=== PATIENT | male | born 1940 | race Caucasian/White ===

== ENCOUNTER 2018-04-27 02:29 | Outpatient (CLI) | payer MEDICARE, MEDICAID, SELFPAY ==
[2018-04-27 11:34] LABS: Glucose 107 mg/dL (70-100)
== END 2018-04-27 02:49 ==
PROVIDERS: PCP Family Medicine; Visit Provider Family Medicine
DX: E74.39 Other disorders of intestinal carbohydrate absorption (principal)
CPT/HCPCS: 36415; 82947

== ENCOUNTER 2018-11-20 02:24 | Outpatient (CLI) | payer MEDICARE, SELFPAY ==
[2018-11-20 10:41] LABS: Calculated LDL 81 mg/dL; Cholesterol 146 mg/dL (50-200); Glucose 104 mg/dL (70-100); HDL Cholesterol 50 mg/dL (40-60); Triglyceride 78 mg/dL (30-150)
== END 2018-11-20 02:44 ==
PROVIDERS: PCP Family Medicine; Visit Provider Family Medicine
DX: E78.5 Hyperlipidemia, unspecified (principal); E74.39 Other disorders of intestinal carbohydrate absorption; Z12.5 Encounter for screening for malignant neoplasm of prostate
CPT/HCPCS: 36415; 80061; 82947; 83721; 84153

== ENCOUNTER 2020-03-01 03:15 | Outpatient (CLI) | payer MEDICARE, MEDICAID, SELFPAY ==
[2020-03-01 13:11] LABS: Hemoglobin A1C 5.5 % (<5.7)
[2020-03-01 13:39] LABS: Magnesium 1.8 mg/dL (1.8-2.4); Vitamin B12 405 pg/mL (193-986)
[2020-03-01 21:33] LABS: PSA, Screening 4.8 ng/mL (0.0-6.5)
== END 2020-03-01 03:35 ==
PROVIDERS: PCP Family Medicine; Visit Provider Family Medicine
DX: E83.42 Hypomagnesemia (principal); D64.9 Anemia, unspecified; R73.9 Hyperglycemia, unspecified; Z12.5 Encounter for screening for malignant neoplasm of prostate
CPT/HCPCS: 36415; 84153; 82607; 83036; 83735

== ENCOUNTER → 2020-03-16 10:54 | Outpatient (BNVA) | payer MEDICARE, MEDICAID, SELFPAY | PROVIDERS: PCP Family Medicine; Referring Provider Family Medicine; Visit Provider Surgery | DX: L72.3 Sebaceous cyst (principal) | CPT/HCPCS: 11422; 99201 ==

== ENCOUNTER → 2020-03-23 09:04 | Outpatient (BNVA) | payer MEDICARE, MEDICAID, SELFPAY | PROVIDERS: PCP Family Medicine; Referring Provider Family Medicine; Visit Provider Surgery | DX: L91.8 Other hypertrophic disorders of the skin (principal) | CPT/HCPCS: 11200; 99211 ==

== ENCOUNTER → 2020-03-30 09:04 | Outpatient (BNVA) | payer MEDICARE, MEDICAID, SELFPAY | PROVIDERS: PCP Family Medicine; Referring Provider Family Medicine; Visit Provider Surgery | DX: Z48.02 Encounter for removal of sutures (principal) ==

== ENCOUNTER 2021-03-27 12:24 | Outpatient (CLI) | payer MEDICARE, MEDICAID, SELFPAY ==
--- NOTE | 2021-03-27 12:15 | RT.EKG_ITS ---
APPROVED REPORT Exam: Resting ECG Reason for Exam: Arythmia Patient Location: O HR:79 bpm ECG Measurements Heart Rate 79 AXIS IA [id number] P [id number] QRSd 150 QRS 15 QT 393 T -27 QTc 450 Conclusion Atrial fibrillation...V-rate 62-107, irreg A-activity Right bundle branch block...QRSd>120, terminal axis(90,270)
== END 2021-03-27 12:25 | disposition home or self-care (01) ==
LOC: DI.CM 12:28
PROVIDERS: PCP Family Medicine; Visit Provider Family Medicine
DX: I49.9 Cardiac arrhythmia, unspecified (principal)
CPT/HCPCS: 93010

== ENCOUNTER 2021-04-18 15:10 | Outpatient (REF) | payer MEDICARE, MEDICAID, SELFPAY ==
[2021-04-20 14:16] LABS: COVID-19 RT-PCR UVMMC Result Negative (Negative)
== END 2021-04-18 15:11 | disposition home or self-care (01) ==
LOC: LBN 15:10
PROVIDERS: PCP Family Medicine; Visit Provider Family Medicine
DX: Z20.822 Contact with and (suspected) exposure to COVID-19 (principal)
CPT/HCPCS: U0003

== ENCOUNTER 2021-04-23 04:08 | Outpatient (CLI) | payer MEDICARE, MEDICAID, SELFPAY ==
[2021-04-23 12:06] LABS: Hemoglobin A1C 5.7 % (<5.7)
[2021-04-23 13:11] LABS: Calculated LDL 93 mg/dL (<100); Cholesterol 160 mg/dL (<200); HDL Cholesterol 52 mg/dL (40-60); Triglyceride 75 mg/dL (<150)
== END 2021-04-23 04:09 | disposition home or self-care (01) ==
LOC: LBO 04:08
PROVIDERS: PCP Family Medicine; Visit Provider Family Medicine
DX: E78.5 Hyperlipidemia, unspecified (principal); R73.9 Hyperglycemia, unspecified; E83.42 Hypomagnesemia
CPT/HCPCS: 36415; 80061; 83036; 83735

== ENCOUNTER 2021-11-26 01:32 | Outpatient (CLI) | payer MEDICARE, MEDICAID, SELFPAY ==
--- OUTSIDE RECORDS SUMMARY | 2021-11-26 01:44 | XMS_ITS | Encounter Summary ---
:1940 [place] [address] Care Team Providers Name Role Phone Onesimo Coyle MD Primary Care Provider Encounter Details Date Type Department Care Team Description 04/10/2017 Hospital Encounter Radiology Library at [facility] Lisa Lanza [facility] [place] [address] [address] [place] [address] [phone] (Wo rk) Social History Tobacco Use Types Packs/Day Years Used Date Never Assessed Sex Assigned at Date Recorded Not on file documented as of this encounter Medications at Time of Discharge Medication Sig Dispensed Refills Start Date End Date Ibuprofen 200 mg Capsule Take by mouth. 0 013 gabapentin (NEURONTIN) take 1 capsule by 0 201604/19/2020 300 mg Capsule mouth PRN famotidine (PEPCID) 20 0 01/26/2008 mg tablet capsaicin (ZOSTRIX) 1 Appl(s), Top, PRN 0 008 09/16/2020 0.025 % cream documented as of this encounter Plan of Treatment Upcoming Encounters Date Type Specialty Care Team Description 01/21/2022 Office Visit Ophthalmology Cody Francisco MD [facility] OPHTHALMOLOGY [place] [place], [place] [address] (Wo rk) documented as of this encounter Procedures Procedure Name Priority Date/Time Associated Diagnosis Comme nts REQUEST FOR 2ND Routine 04/10/2017 10:43 AM Pain Resul ts for this READ CT CHEST EST procedure are in the results section. documented in this encounter Results Request For 2nd Read CT Chest (04/10/2017 10:43 AM EST) Anatomical Region Laterality Modality Chest SO Specimen (Source) Anatomical Location Collection Method / Collectio n Time Received Time / Laterality Volume Impressions 04/10/2017 11:59 AM EST 1. ??Pleural-based 4 mm lingular nodule versus atelectasis. No other pulmonary nodules. No foci of consolidation. 2. ??Indeterminate hypervascular segment a liver lesions. Cannot distinguish benign arterioportal shunt from hemangio ma from other lesion and further evaluation with dynamic contrast-enhance d MRI is suggested. 3. ??Moderate hiatal hernia containing m uch of the stomach. Narrative 04/10/2017 11:59 AM EST EXAMINATION: REQUEST FOR 2ND READ CT CHEST CLINICAL HISTORY: CHRONIC COUGH; LIVER M ASS?; What Modality is the exam? CT Scan; Body Part (please add comments as necessary): CHEST; I believe a reinterpretation of this exam may alter care of Patient. Yes TECHNIQUE: Helical CT of the chest was p erformed following intravenous administration of 70ml of Ominpaque 350. Multiplanar reformatted images were generated. Study performed March 27, 2017 at [facility] COMPARISON: None FINDINGS: Lungs and airways: Pleural-based 4 mm li ngular nodule versus atelectasis. Small foci of dependent atelectasis. Pleura and pericardium: No pleural nor p ericardial effusions. Heart and vasculature: Normal size cardi ac silhouette. Normal caliber thoracic aorta is smooth-walled widely patent gre at vessels. No central pulmonary emboli. Mediastinum and hilar structures: No pat hologically enlarged axillary, mediastinal nor hilar lymph nodes. Moder ate hiatal hernia containing much of the stomach. Limited views of the upper abdomen show dual hypervascular lesions in segment 4A, the largest of which measures 18 mm. Osseous lesions: No focal lytic or scler otic osseous lesion. Procedure Note Shameka Lang MD - 04/10/2017 EXAMINATION: REQUEST FOR 2ND READ CT [facility] CLINICAL HISTORY: CHRONIC COUGH; LIVER M ASS?; What Modality is the exam? CT Scan; Body Part (please add comments as necessary): CHEST; I believe a reinterpretation of this exam may alter care of Patient. Yes TECHNIQUE: Helical CT of the chest was p erformed following intravenous administration of 70ml of Ominpaque 350. Multiplanar reformatted images were generated. Study performed March 27, 2017 at [facility] COMPARISON: None FINDINGS: Lungs and airways: Pleural-based 4 mm li ngular nodule versus atelectasis. Small foci of dependent atelectasis. Pleura and pericardium: No pleural nor p ericardial effusions. Heart and vasculature: Normal size cardi ac silhouette. Normal caliber thoracic aorta is smooth-walled widely patent gre at vessels. No central pulmonary emboli. Mediastinum and hilar structures: No pat hologically enlarged axillary, mediastinal nor hilar lymph nodes. Moder ate hiatal hernia containing much of the stomach. Limited views of the upper abdomen show dual hypervascular lesions in segment 4A, the largest of which measures 18 mm. Osseous lesions: No focal lytic or scler otic osseous lesion. IMPRESSION 1. Pleural-based 4 mm lingular nodule ve rsus atelectasis. No other pulmonary nodules. No foci of consolidation. 2. Indeterminate hypervascular segment a liver lesions. Cannot distinguish benign arterioportal shunt from hemangio ma from other lesion and further evaluation with dynamic contrast-enhance d MRI is suggested. 3. Moderate hiatal hernia containing muc h of the stomach. Nathan Ferrera MD IMG OUTSIDE INTERPRETATION O RDERABLES documented in this encounter Visit Diagnoses Diagnosis Pain Generalized pain documented in this encounter Care Teams Jointer Machine Relationship Specialty Start Date End Date Onesimo Coyle MD PCP - General 04/03/10 04/21/17 [address] [place] [address] documented as of this encounter
--- OUTSIDE RECORDS SUMMARY | 2021-11-26 01:44 | XMS_ITS | Encounter Summary ---
:1940 Author Organization [place] [address] Care Team Providers Name Role Phone Nathan Ferrera MD Primary Care Provider [phone] Reason for Visit Reason Comments Ptosis Encounter Details Date Type Department Care Team Description 01/11/2021 Office Visit Ophthalmology at [facility] Erin Mosqueda, Ptosis of both upper eyelids ; [facility] Dermatochalasis of [place] [address] CENTER [phone] [place] [address] Social History Tobacco Use Types Packs/Day Years Used Date Former Smoker Quit: 1994 Smokeless Tobacco: Never Used Alcohol Use Standard Drinks/Week Comments Yes 0 (1 standard drink = 0.6 oz pure alcoho l) Sex Assigned at Date Recorded Not on file documented as of this encounter Progress Notes Erin Mosqueda MD - 01/11/2021 12:45 PM EDT Images from the original note were not included. Encounter Diagnoses Name Primary? Ptosis of both upper eyelids ??? Dermatochalasis of left upper eyelid Edward Phillip, a 80 y.o. male with the following problem(s): 1. Dermatochalasis of bilateral upper eyelids: causing obstruction of vision and affecting activities of daily living. Visually significant superior field loss of both eyes was demonstrated by Goldmannvisual busby, with 15-20 degrees of improvement noted with eyelid taping. 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 Recommend repair with dermatochalasis excision OU. - Discussed risks, benefits, and alternatives to procedure including risk of bleeding, infection, recurrence, and need for more surgery and Edward expressed understanding. - Patient to stop NSAIDs 14 days prior - Surgical orders entered - Surgical consent signed - pre-operative information packet given - surgical coordination initiated - Call with any problems or questions. - Findings and concerns discussed with Edward and he expressed understanding. FOLLOW UP - schedule for surgery Photo(s) taken by Erin Mosqueda MD with patient's verbal permission for use for clinical and education purposes documented in this encounter Plan of Treatment Upcoming Encounters Date Type Specialty Care Team Description 01/21/2022 Office Visit Ophthalmology Cody Francisco MD [facility] DR OPHTHALMOLOGY [place], [place] [address] (Wo rk) documented as of this encounter Procedures Procedure Name Priority Date/Time Associated Comments Diagnosis GOLDMANN VISUAL FIELD Routine 01/11/2021 1:32 PM Ptosis of bot h Results for this - INTERMEDIATE - OU- EDT upper eyelids proced ure are in BOTH EYES the results section. documented in this encounter Results Goldmann Visual Field - Intermediate - OU - Both Eyes (01/11/2021 1:32 PM EDT) Anatomical Region Laterality Modality Other Specimen (Source) Anatomical Location Collection Method / Collectio n Time Received Time / Laterality Volume Narrative 01/11/2021 1:32 PM EDT Right Eye Reliability was good. Left Eye Reliability was good. Notes OD: superior visual field defect within 20 degrees of fixation, improves 20 degrees with lid taping OS: superior visual field defect within 10 degrees of fixation, improves 15 degrees with lid taping Erin Mosqueda MD OPHTHALMOLOGY SERVICES ORDER CRIS documented in this encounter Visit Diagnoses Diagnosis Ptosis of both upper eyelids Dermatochalasis of left upper eyelid Dermatochalasis documented in this encounter Care Teams Adult Family Home Program Manager Relationship Specialty Start Date End Date Nathan Ferrera MD PCP - General Family Medicine 04/22/[address] [place] [address] documented as of this encounter
--- OUTSIDE RECORDS SUMMARY | 2021-11-26 01:44 | XMS_ITS | Encounter Summary ---
:1940 Author Organization [facility] Address [address] [place] [address] Care Team Providers Name Role Phone Nathan Ferrera MD Primary Care Provider [phone] Reason for Visit Reason Comments Procedure Encounter Details Date Type Department Care Team Description 09/16/2020 Procedure visit Ophthalmology at [facility] Cody Treadwell, Central retinal vein [facility] MD occlusion with Drive [facility] [place] [place] [address] CENTER left eye [phone] [place] [address] Social History Tobacco Use Types Packs/Day Years Used Date Former Smoker Quit: 1994 Smokeless Tobacco: Never Used Alcohol Use Standard Drinks/Week Comments Yes 0 (1 standard drink = 0.6 oz pure alcoho l) Sex Assigned at Date Recorded Not on file documented as of this encounter Patient Instructions Patient InstructionsKimmy Moser - 09/16/2020 11:45 AM EDT Today you had your left eye(s) injected with a medication called Eylea. -Please pay attention to your future scheduled appointments if you are having repeat injections. Future injections in the same eye must be at least 28 days apart. -Please, do not rub or wipe your eye for 24-48 hours after the injection as it would create more irritation.If you feel you must, close your eyes, dab gently, and use the sterile pink saline bullets toflush your eyes. -Try to avoid getting tap water or bath water in the eye for 48 hours. Do not swim for 48 hours. -Caution about driving: We always recommend having a chassis driver on the day you get an injection. If you do not feel comfortable driving after your procedure, please allow your vision to recover or make alternate arrangements. - Here are the Normal and Expected side effects: -Do not be surprised or worried if you have a few bloody tears after the injection. You may have a small blood spot on the white of your eye (subconjunctival hemorrhage) or the appearance of a small blister or bump where the injection was given. -You may notice your vision seems a bit hazy and you may see floaters. -All of these things should gradually become less noticeable over the next few days. -You may also have some mild irritation or a foreign body sensation for up to 24 hours. - Here are the Not Normal and Not Expected side effects: Call [phone] (Eye Clinic) DAY or NIGHT, HOLIDAY or WEEKEND if you experience any of the following: = Severe, increasing pain in the eye = Significant, dramatic vision loss = Redness on and around the eye that gets worse, not better = Severe light sensitivity Call 911 or go to the Emergency room immediately if you experience = Chest pain = Abdominal pain = Weakness or numbness on any part of your body = Slurred speech = Or any other symptoms of concern documented in this encounter Progress Notes Cody Francisco MD - 09/16/2020 11:45 AM EDT ASSESSMENT: 1. 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 OPHTHALMOLOGY [place], [place] [address] (Wo rk) documented as of this encounter Procedures Procedure Name Priority Date/Time Associated Comments Diagnosis INTRAVITREAL INJECTION Routine 09/16/2020 12:24 Central retina l Results for this PHARMACOLOGIC AGENT - PM EDT vein occlusion with procedure are in OS - LEFT EYE macular edema of the result s left eye section. documented in this encounter Results Intravitreal Injection Pharmacologic Agent - OS - Left Eye (09/16/2020 12:24 PM EDT) Anatomical Region Laterality Modality Other Specimen (Source) Anatomical Location Collection Method / Collectio n Time Received Time / Laterality Volume Narrative 09/16/2020 12:24 PM EDT Pre Operative Diagnosis: Central Retinal Vein Occlusion - retina l edema Post Operative Diagnosis: Central Retinal Vein Occlusion - retina l edema Procedure: Intravitreal injection of Eyl ea 2.0 mg left eye Assist: Valet Runner Anesthesia: Topical proparacaine and top ical 4% lidocaine Complications: None Procedure: The patient was taken to the minor treatment suite where the patient was reidentified using name and birthdate as critical identifiers. The correct eye as the operative site wa s reidentified by preplaced site payton, and the consent form was actively reviewed by the credit assistant and the surgeon. The left eye was prepped including insti llation of Betadine 5% into the left cul de sac for 5 minutes, facial pr ep with ophthalmic Betadine, placement of a lid speculum. The Surgeon performed hand washing preop eratively, used gloves, and wore a face mask or used no talking technique during the procedure, as did the surgical services assistant. After topical anesthesia of the injectio n site using multiple Q-tips soaked in 4% Lidocaine, Aflibercept (Eyl ea) 2.0 mg was injected with a 30 gauge needle directed toward the center of the vitreous cavity, a measured 4 mm posterior to the limbus at the ??04 30 o'clock meridian. The patient demonstrated a minimum of counting finge rs vision post injection, and received a post injection drop of Betadi ne OS. An optional patch OS was offered to the patient, and the patient was asked to call the Eye Clinic or Eye Doctor director of enterprise applications, should they devel op pain in the treated eye, increasing redness or a discharge from t he eye. Condition on Discharge: Stable. Cody Francisco MD OPHTHALMOLOGY SERVICES ORDER CRIS documented in this encounter Visit Diagnoses Diagnosis Central retinal vein occlusion with macu lar edema of left eye documented in this encounter Administered Medications Inactive Administered Medications - up to 3 most recent administrations Medication Order MAR Action Action Date Dose Rate Site aflibercept (Eylea) 2 mg/0.05 Given 09/16/2020 12:45 PM EDT 2 mg Left Eye mL ophthalmic injection 2 mg 2 mg, Intravitreal, ONCE, 1 dose, On 09/16/20 at 1245, Routine documented in this encounter Care Teams Reference Test Clerk Relationship Specialty Start Date End Date Nathan Ferrera MD PCP - General Family Medicine 04/22/[address] [place] [address] documented as of this encounter
--- OUTSIDE RECORDS SUMMARY | 2021-11-26 01:44 | XMS_ITS | Encounter Summary ---
:1940 Author Organization [facility] Address [address] [place] [address] Care Team Providers Name Role Phone Nathan Ferrera MD Primary Care Provider [phone] Reason for Visit Reason Comments Procedure Encounter Details Date Type Department Care Team Description 05/27/2020 Procedure visit Ophthalmology at [facility] Cody Treadwell, Central retinal vein [facility] MD occlusion with Drive [facility] [place] [place] [address] CENTER left eye [phone] [place] [address] Social History Tobacco Use Types Packs/Day Years Used Date Former Smoker Quit: 1994 Smokeless Tobacco: Never Used Alcohol Use Standard Drinks/Week Comments Yes 0 (1 standard drink = 0.6 oz pure alcoho l) Sex Assigned at Date Recorded Not on file documented as of this encounter Patient Instructions Patient InstructionsVero Lopez - 05/27/2020 10:15 AM EST Today you had your left eye(s) injected [...] about driving: We always recommend having a driver starting gate on the day you get an injection. [...] Normal and Not Expected side effects: Call [phone] (Eye Clinic) DAY or NIGHT, HOLIDAY or [...] encounter Progress Notes Cody Francisco MD - 05/27/2020 10:15 AM EST ASSESSMENT: 1. 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 Extended to 8 weeks. OCT: very mild recurrence of CME just starting Vision is down a bit to 20/200 from 20/60 at its best OS. PLAN: Ok to continue 8 week intervals based on OCT. Lets call today #1/3 Eylea OS. Eylea OS #1/3 Today Please schedule the followin weeks Eylea OS #2/3 MSO only 8 weeks Eylea OS #3/3 MSO only 8 weeks for Re-eval FV+MSO with DFE/OCT and planned Eylea OS Cody Perdue. MD Nolan documented in this encounter Plan of Treatment Upcoming Encounters Date Type Specialty Care Team Description 01/21/2022 Office Visit Ophthalmology Cody Francisco MD [facility] OPHTHALMOLOGY [place], [place] [address] (Wo rk) documented as of this encounter Procedures Procedure Name Priority Date/Time Associated Comments Diagnosis INTRAVITREAL INJECTION Routine 05/27/2020 10:45 Central retina l Results for this PHARMACOLOGIC AGENT - AM EST vein occlusion with procedure are in OS - LEFT EYE macular edema of the result s left eye section. documented in this encounter Results Intravitreal Injection Pharmacologic Agent - OS - Left Eye (05/27/2020 10:45 AM EST) Anatomical Region Laterality Modality Other Specimen (Source) Anatomical Location Collection Method / Collectio n Time Received Time / Laterality Volume Narrative 05/27/2020 10:45 AM EST Pre Operative Diagnosis: Central Retinal Vein Occlusion - retina l edema Post Operative Diagnosis: Central Retinal Vein Occlusion - retina l edema Procedure: Intravitreal injection of Eyl ea 2.0 mg left eye Assist: Transportation Dispatcher Anesthesia: Topical proparacaine and top ical 4% lidocaine Complications: None Procedure: The patient was taken to the minor treatment suite where the patient was reidentified using name and birthdate as critical identifiers. The correct eye as the operative site wa s reidentified by preplaced site payton, and the consent form was actively reviewed by the assistant chief nursing officer and the surgeon. The left eye was prepped including insti llation of Betadine 5% into the left cul de sac for 5 minutes, facial pr ep with ophthalmic Betadine, placement of a lid speculum. The Surgeon performed hand washing preop eratively, used gloves, and wore a face mask or used no talking technique during the procedure, as did the surgical technologist. After topical anesthesia of the injectio n [...] call the Eye Clinic or Eye Doctor numerical control router operator, should they devel op pain in the [...] Rate Site aflibercept (Eylea) 2 mg/0.05 Given 05/27/2020 11:15 AM EST 2 mg Left Eye mL ophthalmic injection 2 mg 2 mg, Intravitreal, ONCE, 1 dose, On 05/27/20 at 1115, Routine documented in this encounter Care Teams Artist'S Model Relationship Specialty Start Date End Date Nathan Ferrera MD PCP - General Family Medicine 04/22/[address] [place] [address] documented as of this encounter
--- OUTSIDE RECORDS SUMMARY | 2021-11-26 01:44 | XMS_ITS | Encounter Summary ---
:1940 Author Organization [facility] Address [address] [place] [address] Care Team Providers Name Role Phone Nathan Ferrera MD Primary Care Provider [phone] Reason for Visit Reason Comments Procedure Encounter Details Date Type Department Care Team Description 02/19/2020 Procedure visit [facility]hthalmology at [facility] Cody Treadwell, Central retinal vein [facility] MD occlusion with Drive [facility] [place] [address] [facility] left eye [phone] [place] [address] Social History Tobacco Use Types Packs/Day Years Used Date Former Smoker Quit: 1994 Smokeless Tobacco: Never Used Alcohol Use Standard Drinks/Week Comments Yes 0 (1 standard drink = 0.6 oz pure alcoho l) Sex Assigned at Date Recorded Not on file documented as of this encounter Patient Instructions Patient InstructionsVero Lopez - 02/19/2020 10:45 AM EDT Today you had your left [...] about driving: We always recommend having a nascar driver on the day you get an [...] Normal and Not Expected side effects: Call [phone] (Eye Clinic) DAY or NIGHT, HOLIDAY or [...] encounter Progress Notes Cody Francisco MD - 02/19/2020 10:45 AM EDT ASSESSMENT: 1. 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 Planned Eylea OS Keep Ozurdex as option in future as well Sooner PRN Cody Perdue. MD Nolan documented in this encounter Plan of Treatment Upcoming Encounters Date Type Specialty Care Team Description 01/21/2022 Office Visit Ophthalmology Cody Francisco MD [facility] OPHTHALMOLOGY [place] [address] (Wo rk) documented as of this encounter Procedures Procedure Name Priority Date/Time Associated Comments Diagnosis INTRAVITREAL INJECTION Routine 02/19/2020 11:15 Central retina l Results for this PHARMACOLOGIC AGENT - AM EDT vein occlusion with procedure are in OS - LEFT EYE macular edema of the result s left eye section. documented in this encounter Results Intravitreal Injection Pharmacologic Agent - OS - Left Eye (02/19/2020 11:15 AM EDT) Anatomical Region Laterality Modality Other Specimen (Source) Anatomical Location Collection Method / Collectio n Time Received Time / Laterality Volume Narrative 02/19/2020 11:15 AM EDT Pre Operative Diagnosis: Central Retinal Vein Occlusion - retina l edema Post Operative Diagnosis: Central Retinal Vein Occlusion - retina l edema Procedure: Intravitreal injection of Eyl ea 2.0 mg left eye Assist: Hospice/Home Health Aide Anesthesia: Topical proparacaine and top ical 4% lidocaine Complications: None Procedure: The patient was taken to the minor treatment suite where the patient was reidentified using name and birthdate as critical identifiers. The correct eye as the operative site wa s reidentified by preplaced site payton, and the consent form was actively reviewed by the hair assistant and the surgeon. The left eye was prepped including insti llation of Betadine 5% into the left cul de sac for 5 minutes, facial pr ep with ophthalmic Betadine, placement of a lid speculum. The Surgeon performed hand washing preop eratively, used gloves, and wore a face mask or used no talking technique during the procedure, as did the surgical elastic knitter. After topical anesthesia of the injectio n [...] call the Eye Clinic or Eye Doctor environmental technical officer, should they devel op pain in the [...] Action Action Date Dose Rate Site aflibercept (EYLEA) ophthalmic Given 02/19/2020 11:45 AM EDT 2 m g Left Eye injection 2 mg 2 mg, Intravitreal, ONCE, 1 dose, On 02/19/20 at 1145, Routine documented in this encounter Care Teams Manufacturing Weaver Relationship Specialty Start Date End Date Nathan Ferrera MD PCP - General Family Medicine 04/22/[address] [place] [address] documented as of this encounter
--- OUTSIDE RECORDS SUMMARY | 2021-11-26 01:44 | XMS_ITS | Encounter Summary ---
:1940 Author Organization [facility] Address [address] [place] [address] Care Team Providers Name Role Phone Nathan Ferrera MD Primary Care Provider [phone] Reason for Visit Reason Comments Procedure Eylea OS for CRVO Encounter Details Date Type Department Care Team Description 01/16/2021 Procedure visit Ophthalmology at [facility] Cody Treadwell, Central retinal vein [facility] MD occlusion with Drive [facility] [place] [address] C[place] left eye [phone] [place] [address] Social History Tobacco Use Types Packs/Day Years Used Date Former Smoker Quit: 1994 Smokeless Tobacco: Never Used Alcohol Use Standard Drinks/Week Comments Yes 0 (1 standard drink = 0.6 oz pure alcoho l) Sex Assigned at Date Recorded Not on file documented as of this encounter Patient Instructions Patient InstructionsJyoti Black - 01/16/2021 2:30 PM EDT Today you had your left eye(s) [...] about driving: We always recommend having a trackless trolley driver on the day you get an [...] Normal and Not Expected side effects: Call [phone] (Eye Clinic) DAY or NIGHT, HOLIDAY or [...] encounter Progress Notes Cody Francisco MD - 01/16/2021 2:30 PM EDT ASSESSMENT: 1. 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 Lets plan for the re-eval at next visit instead of waiting untilJan. Follow up as scheduled: Mar 16, 8-10 weeks for FV and MSO with DFE/OCT and planned Eylea OS. DFE in procedure room OK. Cancel Dedrick appt for now. Cody Francisco MD documented in this encounter Plan of Treatment Upcoming Encounters Date Type Specialty Care Team Description 01/21/2022 Office Visit Ophthalmology Cody Francisco MD [facility] OPHTHALMOLOGY [place], [place] [address] (Wo rk) documented as of this encounter Procedures Procedure Name Priority Date/Time Associated Comments Diagnosis INTRAVITREAL INJECTION Routine 01/16/2021 3:37 PM Central reti nal Results for this PHARMACOLOGIC AGENT - EDT vein occlusion with procedure are in OS - LEFT EYE macular edema of the result s left eye section. documented in this encounter Results Intravitreal Injection Pharmacologic Agent - OS - Left Eye (01/16/2021 3:37 PM EDT) Anatomical Region Laterality Modality Other Specimen (Source) Anatomical Location Collection Method / Collectio n Time Received Time / Laterality Volume Narrative 01/16/2021 3:37 PM EDT Pre Operative Diagnosis: Central Retinal Vein Occlusion - retina l edema Post Operative Diagnosis: Central Retinal Vein Occlusion - retina l edema Procedure: Intravitreal injection of Eyl ea 2.0 mg left eye Assist: Business Info Consultant Anesthesia: Topical proparacaine and top ical 4% lidocaine Complications: None Procedure: The patient was taken to the minor treatment suite where the patient was reidentified using name and birthdate as critical identifiers. The correct eye as the operative site wa s reidentified by preplaced site payton, and the consent form was actively reviewed by the assistant unit forester and the surgeon. The left eye was prepped including insti llation of Betadine 5% into the left cul de sac for 5 minutes, facial pr ep with ophthalmic Betadine, placement of a lid speculum. The Surgeon performed hand washing preop eratively, used gloves, and wore a face mask or used no talking technique during the procedure, as did the press operator assistant. After topical anesthesia of the injectio [...] call the Eye Clinic or Eye Doctor bond writer, should they devel op pain in the [...] Dose Rate Site aflibercept (Eylea) 2 mg/0.05 mL Given 01/16/2021 4:00 PM EDT 2 mg Left Eye ophthalmic injection 2 mg 2 mg, Intravitreal, ONCE, 1 dose, On Fri01/16/21 at 1600, Routine documented in this encounter Care Teams Automotive Glazier Relationship Specialty Start Date End Date Nathan Ferrera MD PCP - General Family Medicine 04/22/[address] [place] [address] documented as of this encounter
--- OUTSIDE RECORDS SUMMARY | 2021-11-26 01:44 | XMS_ITS | Clinical Summary ---
:1940 Author Organization [facility] [place] [address] Care Team Providers Name Role Phone Nathan Ferrera MD Primary Care Provider [phone] Allergies No known active allergies Medications Medication Sig Dispensed Refills Start Date End Date Status ibuprofen Take 200 mg by 0 Activ e (ADVIL;MOTRIN) 200 mg mouth every 6 Tablet hours as needed for Pain. multivitamin Take 1 tablet by 0 Active (THERAGRAN) Tablet mouth daily. Ventolin HFA 90 INHALE TWO PUFFS 0 04/14/2020 Active mcg/actuation HFA BY MOUTH FOUR Aerosol Inhaler TIMES A DAY FOR SHORTNESS OF BREATH OR WHEEZING penicillin v potassium TAKE ONE TABLET BY 0 04/13/20 20 Active (VEETID) 500 mg Tablet MOUTH THREE TIMES A DAY FOR 7 DAYS tamsulosin (Flomax) TAKE ONE CAPSULE 0 04/14/2020 Active 0.4 mg Capsule BY MOUTH EVERY DAY [id number] Take by mouth. 0 12/19/2017 Active 2-C-D3-KERRY ORAL Ibuprofen 200 mg Take by mouth. 0 09/30/2012 Active Capsule omeprazole (PriLOSEC) TAKE 1 CAPSULE BY 0 09/01/2020 Active 20 mg Capsule, Delayed MOUTH TWICE DAILY Release(E.C.) Active Problems Problem Noted Date Dermatochalasis of eyelid of left eye 01/11/2021 Encounters Date Type Specialty Care Team Description 11/16/2021 Procedure visit Ophthalmology Cody Francisco MD Cent ral retinal vein occlusion with macular edema of left e ye 10/26/2021 Office Visit Ophthalmology Charles Alcala, Cataract , unspecified cataract type, unspecified lat erality 09/21/2021 Procedure visit Ophthalmology Cody Francisco MD Cent ral retinal vein occlusion with macular edema of left e ye from Last 3 Months Immunizations Name Administration Dates Next Due Influenza Vaccine, Whole 04/14/2006, 03/11/2005 Pneumococcal Polyvalent 23 07/19/1998 Td, adult 07/19/1998 Family History Medical History Relation Comments Glaucoma Neg Hx Macular Degeneration Neg Hx Retinal Detachment Neg Hx Social History Tobacco Use Types Packs/Day Years Used Date Former Smoker Quit: 1994 Smokeless Tobacco: Never Used Alcohol Use Standard Drinks/Week Comments Yes 0 (1 standard drink = 0.6 oz pure alcoho l) Sex Assigned at Date Recorded Not on file Last Filed Vital Signs Vital Sign Reading Time Taken Comments Blood Pressure 130/71 11/19/2017 11:48 AM EDT Pulse 91 11/19/2017 11:48 AM EDT Temperature - - Respiratory Rate - - Oxygen Saturation - - Inhaled Oxygen Concentration - - Weight 89.4 kg (197 lb 3.2 oz) 11/19/2017 11:48 AM EDT Height 188 cm (6' 2) 11/19/2017 11:48 AM EDT Body Mass Index 25.32 11/19/2017 11:48 AM EDT Plan of Treatment Upcoming Encounters Date Type Specialty Care Team Description 01/21/2022 Office Visit Ophthalmology Cody Francisco MD [facility] [address] OPHTHALMOLOGY [place] [address] (Wo rk) Health Maintenance Due Date Last Done Comments Covid-19 Vaccine (#1) 12/26/1945 Tdap adult 1957 Zoster vaccine (1 of 2) 1988 Advance Directive 1993 Pneumoccocal Vaccine: 65+ (1 - PCV) 12/26/2003 07/19/1998 Tetanus vaccine 07/19/2008 07/19/1998 Influenza (Flu) vaccine (1 of 1 - 01/10/2022 04/14/2006, Influenza standard series) Procedures Procedure Name Priority Date/Time Associated Comments Diagnosis INTRAVITREAL INJECTION Routine 11/16/2021 11:41 Central retina l Results for this PHARMACOLOGIC AGENT - AM EDT vein occlusion with procedure are in OS - LEFT EYE macular edema of the result s left eye section. [id number] CALC Routine 10/26/2021 3:40 Cataract, Re sults for this BY LASER INTERFEROMETRY PM EDT unspecified proc edure are in - OU - BOTH EYES cataract type, the resul ts unspecified section. laterality OCT RETINA - OU - BOTH Routine 09/21/2021 5:17 Central retinal Results for this EYES PM EDT vein occlusion with procedur e are in macular edema of the results left eye section. INTRAVITREAL INJECTION Routine 09/21/2021 4:45 Central retinal Results for this PHARMACOLOGIC AGENT - PM EDT vein occlusion with procedure are in OS - LEFT EYE macular edema of the result s left eye section. from Last 3 Months Results Intravitreal Injection Pharmacologic Agent - OS - Left Eye (11/16/2021 11:41 AM EDT) Anatomical Region Laterality Modality Other Specimen (Source) Anatomical Location Collection Method / Collectio n Time Received Time / Laterality Volume Narrative 11/16/2021 6:28 PM EDT Pre Operative Diagnosis: Central Retinal Vein Occlusion - retina l edema Post Operative Diagnosis: Central Retinal Vein Occlusion - retina l edema Procedure: Intravitreal injection of Eyl ea 2.0 mg left eye Assist: Narcotics And/Or Vice Detective Anesthesia: Topical proparacaine and top ical 4% lidocaine Complications: None Procedure: The patient was taken to the minor treatment suite where the patient was reidentified using name and birthdate as critical identifiers. The correct eye as the operative site wa s reidentified by preplaced site payton, and the consent form was actively reviewed by the lpn or medical assistant and the surgeon. The left eye was prepped including insti llation of Betadine 5% into the left cul de sac for 5 minutes, facial pr ep with ophthalmic Betadine, placement of a lid speculum. The Surgeon performed hand washing preop eratively, used gloves, and wore a face mask or used no talking technique during the procedure, as did the registered nurse surgical services. After topical anesthesia of the injectio n [...] call the Eye Clinic or Eye Doctor diamond die polisher, should they devel op pain in the treated eye, increasing redness or a discharge from t he eye. Condition on Discharge: Stable. Cody Francisco MD OPHTHALMOLOGY SERVICES ORDER CRIS [id number] Calc By Laser Interferometry - OU - Both Eyes (10/26/2021 3:40 PM EDT) Anatomical Region Laterality Modality Other Specimen (Source) Anatomical Location Collection Method / Collectio n Time Received Time / Laterality Volume Narrative 10/26/2021 3:40 PM EDT Patient Hx Past Medical Hx ??Pt. ??has a past medi alisha history of Cataract (aprox 1999), GERD (gastroesophageal reflux dis ease), and Retinal detachment (Aprox 1954). Past Ophth Surg Hx ??Ophth surgical his tory includes: left intravitreal injection, 09/09/2019 ([facility] Dr. Neftali simpson); left intravitreal injection, 10/07/2019 ([facility] for CRVO per NNB); left intravitreal injection, 11/06/2019 ([facility] for CRVO per NNB); left intravitreal injection, 12/11/2019 ( [facility] for CRVO); left in travitreal injection, 01/15/2020 (Eylea OS for CRVO -NNB); left intravitr eal injection, 02/19/2020 (Eylea #2/3 for CRVO - NNB); left intravitreal injection, 03/25/2020 (Eylea OS #3/3 for CRVO - NNB); left intravitreal injection, 05/27/2020 (Eylea OS for CRVO - NNB); left intravitreal injec tion, 07/22/2020 (Eylea OS for CRVO - NNB); left intravitreal injection , 09/16/2020 (Eylea OS for CRVO - NNB; prepped by CMM); left intravitreal injection, 11/10/2020 (Eylea OS for CRVO - NNB); left intravitreal injec tion, 09/21/2021 (Eylea OS for CRVO - NNB); left cataract removal/iol i mplmalinda, 1999 ([place]. Dr. Vimal Islas. ); and left yag capsulotomy , 1999 ([facility]. Dr. Vimal Islas. ). Eye Meds ??Ibuprofen, albuteroL, glucos am/chond-msm 2/C/D3/kerry, ibuprofen, multivitamin, omeprazole, pen icillin v potassium, and tamsulosin IOL Biometry - Initial (source: [facility]) OD OS Date Performed 10/26/2021 ??3:18 PM 2021 ??3:18 PM ?? Target Refraction 0 0 ?? Axial Length 23.95 (mm) 24.07 (mm) ?? Anterior Chamber Depth 3.56 (mm) 6.19 (m m) ?? Horizontal White to White 11.85 (mm) 11. 83 (mm) ?? Formula Used ? K's 40.75, 40.57@93, 97 / 42.5, 42.44@3, 7 40.75, 41.13@140, 146 / 42.75, 42.95@50, 56 ? Add'l Comments/Discrepancies/Concerns: POM done today 10/26/21 [place] OU pseudophakia OS Charles Alcala MD OPHTHALMOLOGY SERVICES ORDER CRIS OCT Retina - OU - Both Eyes (09/21/2021 5:17 PM EDT) Anatomical Region Laterality Modality Other Specimen (Source) Anatomical Location Collection Method / Collectio n Time Received Time / Laterality Volume Narrative 09/21/2021 5:17 PM EDT Right Eye Quality was good. Scan locations include d subfoveal. Progression has been stable. Findings include normal observat ions, normal foveal contour. Left Eye Quality was good. Scan locations include d subfoveal. Progression has been stable. Findings include cystoid macular edema, intraretinal fluid, abnormal foveal contour, choroidal neova scular membrane. Notes Stable mild/ CME OS ERM. Cody Francisco MD OPHTHALMOLOGY SERVICES ORDER CRIS Intravitreal Injection Pharmacologic Agent - OS - Left Eye (09/21/2021 4:45 PM EDT) Anatomical Region Laterality Modality Other Specimen (Source) Anatomical Location Collection Method / Collectio n Time Received Time / Laterality Volume Narrative 09/21/2021 4:45 PM EDT Pre Operative Diagnosis: Central Retinal Vein Occlusion - retina l edema Post Operative Diagnosis: Central Retinal Vein Occlusion - retina l edema Procedure: Intravitreal injection of Eyl ea 2.0 mg left eye Assist: Narcotics And/Or Vice Detective Anesthesia: Topical proparacaine and top ical 4% lidocaine Complications: None Procedure: The patient was taken to the minor treatment suite where the patient was reidentified using name and birthdate as critical identifiers. The correct eye as the operative site wa s reidentified by preplaced site payton, and the consent form was actively reviewed by the lpn or medical assistant and the surgeon. The left eye was prepped including insti llation of Betadine 5% into the left cul de sac for 5 minutes, facial pr ep with ophthalmic Betadine, placement of a lid speculum. The Surgeon performed hand washing preop eratively, used gloves, and wore a face mask or used no talking technique during the procedure, as did the registered nurse surgical services. After topical anesthesia of the injectio n [...] call the Eye Clinic or Eye Doctor diamond die polisher, should they devel op pain in the treated eye, increasing redness or a discharge from t he eye. Condition on Discharge: Stable. Cody Francisco MD OPHTHALMOLOGY SERVICES ORDER CRIS from Last 3 Months Insurance Payer Benefit Plan / Subscriber ID Effective Dates Phone Addre ss Type Group MEDICARE MEDICARE PART [id number] 2004-Presen [id number] [place] [address] [place] [id number] 2017-Pres [phone] [address] [place] [address] Care Teams Transport Nurse Relationship Specialty Start Date End Date Nathan Ferrera MD PCP - General Family Medicine 04/22/[address] [place] [address]
--- OUTSIDE RECORDS SUMMARY | 2021-11-26 01:44 | XMS_ITS | Encounter Summary ---
:1940 Author Organization [facility] Address [address] [place] [address] Care Team Providers Name Role Phone Nathan Ferrera MD Primary Care Provider [phone] Reason for Visit Reason Comments Procedure Encounter Details Date Type Department Care Team Description 03/25/2020 Procedure visit Ophthalmology at [facility] Cody Treadwell, Central retinal vein [facility] MD occlusion with Drive [facility] [place] [address] [facility] left eye [phone] [place] [address] Social History Tobacco Use Types Packs/Day Years Used Date Former Smoker Quit: 1994 Smokeless Tobacco: Never Used Alcohol Use Standard Drinks/Week Comments Yes 0 (1 standard drink = 0.6 oz pure alcoho l) Sex Assigned at Date Recorded Not on file documented as of this encounter Patient Instructions Patient InstructionsVero Lopez - 03/25/2020 10:45 AM EST Today you had your left [...] about driving: We always recommend having a maintenance truck driver on the day you get an [...] Normal and Not Expected side effects: Call [phone] (Eye Clinic) DAY or NIGHT, HOLIDAY or [...] encounter Progress Notes Cody Francisco MD - 03/25/2020 10:45 AM EST ASSESSMENT: 1. 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 Planned Eylea OS Keep Ozurdex as option in future as well Sooner PRN Cody Perdue. MD Nolan documented in this encounter Plan of Treatment Upcoming Encounters Date Type Specialty Care Team Description 01/21/2022 Office Visit Ophthalmology Cody Francisco MD [facility] OPHTHALMOLOGY [place], [place] [address] (Wo rk) documented as of this encounter Procedures Procedure Name Priority Date/Time Associated Comments Diagnosis INTRAVITREAL INJECTION Routine 03/25/2020 10:56 Central retina l Results for this PHARMACOLOGIC AGENT - AM EST vein occlusion with procedure are in OS - LEFT EYE macular edema of the result s left eye section. documented in this encounter Results Intravitreal Injection Pharmacologic Agent - OS - Left Eye (03/25/2020 10:56 AM EST) Anatomical Region Laterality Modality Other Specimen (Source) Anatomical Location Collection Method / Collectio n Time Received Time / Laterality Volume Narrative 03/25/2020 10:56 AM EST Pre Operative Diagnosis: Central Retinal Vein Occlusion - retina l edema Post Operative Diagnosis: Central Retinal Vein Occlusion - retina l edema Procedure: Intravitreal injection of Eyl ea 2.0 mg left eye Assist: Traffic Control Technician Anesthesia: Topical proparacaine and top ical 4% lidocaine Complications: None Procedure: The patient was taken to the minor treatment suite where the patient was reidentified using name and birthdate as critical identifiers. The correct eye as the operative site wa s reidentified by preplaced site payton, and the consent form was actively reviewed by the bar assistant and the surgeon. The left eye was prepped including insti llation of Betadine 5% into the left cul de sac for 5 minutes, facial pr ep with ophthalmic Betadine, placement of a lid speculum. The Surgeon performed hand washing preop eratively, used gloves, and wore a face mask or used no talking technique during the procedure, as did the surgical services coordinator. After topical anesthesia of the injectio n [...] call the Eye Clinic or Eye Doctor control room supervisor, should they devel op pain in the [...] Dose Rate Site aflibercept (EYLEA) ophthalmic Given 03/25/2020 11:15 AM EST 2 m g Left Eye injection 2 mg 2 mg, Intravitreal, ONCE, 1 dose, On 03/25/20 at 1115, Routine documented in this encounter Care Teams Waste Hand Relationship Specialty Start Date End Date Nathan Ferrera MD PCP - General Family Medicine 04/22/[address] [place] [address] documented as of this encounter
--- OUTSIDE RECORDS SUMMARY | 2021-11-26 01:44 | XMS_ITS | Encounter Summary ---
:1940 Author Organization [facility] Address One [facility] [address] [place] [address] Care Team Providers Name Role Phone Nathan Ferrera MD Primary Care Provider [phone] Reason for Visit Reason Comments Procedure Lucentis OS Encounter Details Date Type Department Care Team Description 11/06/2019 Procedure visit Ophthalmology at [facility] C Cody Francisco, Central retinal vein [facility] MD occlusion with Drive ONE [facility] [place] [address] CENTER left eye [phone] [place] [address] Social History Tobacco Use Types Packs/Day Years Used Date Former Smoker Quit: 1994 Smokeless Tobacco: Never Used Alcohol Use Standard Drinks/Week Comments Yes 0 (1 standard drink = 0.6 oz pure alcoho l) Sex Assigned at Date Recorded Not on file documented as of this encounter Patient Instructions Patient InstructionsJyoti Black - 11/06/2019 10:15 AM EDT Today you had your left eye(s) injected with a medication called Lucentis. -Please pay attention to your future scheduled [...] about driving: We always recommend having a four horse hitch driver on the day you get an [...] Normal and Not Expected side effects: Call [phone] (Eye Clinic) DAY or NIGHT, HOLIDAY or WEEKEND if you experience any of the following: = Severe, increasing pain in the eye = Significant, dramatic vision loss = Redness on and around the eye that gets worse, not better = Severe light sensitivity Call [phone] or go to the Emergency room immediately if you experience = Chest pain = Abdominal pain = Weakness or numbness on any part of your body = Slurred speech = Or any other symptoms of concern documented in this encounter Progress Notes Cody Francisco MD - 11/06/2019 10:15 AM EDT ASSESSMENT: 1. 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 Slight decrease in CMT from 622 to 529 PLAN: Stay on schedule with monthly Lucentis OS for now. Visual prognosis guarded given poor presenting vision and likely ischemic CRVO Follow up 4-5 weeks for ndOCT + MSO only Lucentis OS. If persistent at that visit may switch to trial of Eylea in future +/- Ozurdex Sooner PRN Cody Perdue. MD Nolan documented in this encounter Plan of Treatment Upcoming Encounters Date Type Specialty Care Team Description 01/21/2022 Office Visit Ophthalmology Cody Francisco MD [facility] OPH[facility] [place], [place] [address] (Wo rk) documented as of this encounter Procedures Procedure Name Priority Date/Time Associated Comments Diagnosis INTRAVITREAL INJECTION Routine 11/06/2019 10:44 Central retina l Results for this PHARMACOLOGIC AGENT - AM EDT vein occlusion with procedure are in OS - LEFT EYE macular edema of the result s left eye section. documented in this encounter Results Intravitreal Injection Pharmacologic Agent - OS - Left Eye (11/06/2019 10:44 AM EDT) Anatomical Region Laterality Modality Other Specimen (Source) Anatomical Location Collection Method / Collectio n Time Received Time / Laterality Volume Narrative 11/06/2019 10:44 AM EDT Pre Operative Diagnosis: Central Retinal Vein Occlusion - retina l edema Post Operative Diagnosis: Central Retinal Vein Occlusion - retina l edema Procedure: Intravitreal injection of Tuan entis 0.5 mg left eye Assist: Uniforms Sales Representative Anesthesia: Topical proparacaine and top ical 4% lidocaine Complications: None Procedure: The patient was taken to the minor treatment suite where the patient was reidentified using name and birthdate as critical identifiers. The correct eye as the operative site wa s reidentified by preplaced site payton, and the consent form was actively reviewed by the assistant merchandiser and the surgeon. The left eye was [...] n site using multiple Q-tips soaked in 4%Lidocaine, Ranibizumab (Sutter ntis) 0.5 mg was injected with a 30 gauge needle directed toward the cent er of the vitreous cavity, a measured 4 mm posterior to the limbus at the 0430 o'clock meridian. The patient demonstrated a minimum of counti ng fingers vision post injection, and received a post injection drop of Be tadine OS. An optional patch OS was offered to the patient, and the alvaro ent was asked to call the Eye Clinic or Eye Doctor logging contractor, should the y develop pain in the treated eye, increasing redness [...] MAR Action Action Date Dose Rate Site ranibizumab (LUCENTIS) Given 11/06/2019 11:00 AM 0.5 mg Left Eye ophthalmic injection 0.5 mg EDT 0.5 mg, Intravitreal, ONCE, 1 dose, On 11/06/19 at 1100, Vial contents must be withdrawn using a 5 micron filter needle prior to administration , Routine documented in this encounter Care Teams Dialysis Nurse Relationship Specialty Start Date End Date Nathan Ferrera MD PCP - General Family Medicine 04/22/[address] [place] [address] documented as of this encounter
--- OUTSIDE RECORDS SUMMARY | 2021-11-26 01:44 | XMS_ITS | Encounter Summary ---
:1940 Author Organization [facility] Address [facility] [address] [place] [address] Care Team Providers Name Role Phone Nathan Ferrera MD Primary Care Provider [phone] Encounter Details Date Type Department Care Team Description 07/24/2020 Telephone Ophthalmology at [facility] Cody Treadwell MD [facility] [address] OPHTHALMOLOGY DEPT [phone] [place], [place] [address] (Wo rk) Social History Tobacco Use Types Packs/Day Years Used Date Former Smoker Quit: 1994 Smokeless Tobacco: Never Used Alcohol Use Standard Drinks/Week Comments Yes 0 (1 standard drink = 0.6 oz pure alcoho l) Sex Assigned at Date Recorded Not on file documented as of this encounter Miscellaneous Notes Telephone Encounter - Stefani Srivastava - 07/25/2020 3:25 PM EDT Gave him the info and contact info for [facility] to get set up maybe there since he is close to [facility] Telephone Encounter - Stefani Srivastava - 07/24/2020 1:[address] Francisco, I spoke to patient today and he mentioned that he forgot to ask you something he has been wondering and that is in regards to driving, he thinks that in the future he may want to purchase a new truck but wanted to ask you about it? Can you give me your thoughts? No hurry but he asked me to call him back after I asked you, thanks documented in this encounter Plan of Treatment Upcoming Encounters Date Type Specialty Care Team Description 01/21/2022 Office Visit Ophthalmology Cody Francisco MD [facility] OPHTHALMOLOGY [place], [place] [address] (Wo rk) documented as of this encounter Visit Diagnoses Not on filedocumented in this encounter Care Teams Electrocardiograph Operator Relationship Specialty Start Date End Date Nathan Ferrera MD PCP - General Family Medicine 04/22/[address] [place] [address] [address] [place] [address] documented as of this encounter
--- OUTSIDE RECORDS SUMMARY | 2021-11-26 01:44 | XMS_ITS | Encounter Summary ---
:1940 Author Organization [facility] [place] [address] Care Team Providers Name Role Phone Nathan Ferrera MD Primary Care Provider [phone] Encounter Details Date Type Department Care Team Description 07/21/2020 Telephone Ophthalmology at [facility] Cody Treadwell MD [facility] [place] [address] OPHTHALMOLOGY DEPT [phone] [place], [place] [address] (Wo rk) Social History Tobacco Use Types Packs/Day Years Used Date Former Smoker Quit: 1994 Smokeless Tobacco: Never Used Alcohol Use Standard Drinks/Week Comments Yes 0 (1 standard drink = 0.6 oz pure alcoho l) Sex Assigned at Date Recorded Not on file documented as of this encounter Miscellaneous Notes Telephone Encounter - Stefani Srivastava - 07/21/2020 10:28 AM EST I called and left a message for patient to call and move his 5/10 min to 5/8 (Friday) if he wishes, he prefers the Friday injections and when we made his series we didnt have them yet documented in this encounter Plan of Treatment Upcoming Encounters Date Type Specialty Care Team Description 01/21/2022 Office Visit Ophthalmology Cody Francisco MD [facility] ER OPHTHALMOLOGY DE PT [place], [place] [address] (Wo rk) documented as of this encounter Visit Diagnoses Not on filedocumented in this encounter Care Teams Rink Rat Relationship Specialty Start Date End Date Nathan Ferrera MD PCP - General Family Medicine 04/22/17 [address] [facility] [address] [place] [address] documented as of this encounter
--- OUTSIDE RECORDS SUMMARY | 2021-11-26 01:44 | XMS_ITS | Encounter Summary ---
:1940 Author Organization [facility] Address One [facility] [place] [address] Care Team Providers Name Role Phone Nathan Ferrera MD Primary Care Provider [phone] Reason for Visit Reason Comments Procedure Retinal Vein Occlusion Encounter Details Date Type Department Care Team Description 11/10/2020 Office Visit Ophthalmology at [facility] C Cody Francisco, Central retinal vein occlusi on with macular edema of left eye; [facility] Combined forms of age-related cataract o f right eye; Drive ONE [facility] [place], [place] [address] CENTER [phone] OPHTHALMOLOGY DEPT [place], [place] [address] Social History Tobacco Use Types Packs/Day Years Used Date Former Smoker Quit: 1994 Smokeless Tobacco: Never Used Alcohol Use Standard Drinks/Week Comments Yes 0 (1 standard drink = 0.6 oz pure alcoho l) Sex Assigned at Date Recorded Not on file documented as of this encounter Progress Notes Cody Francisco MD - 11/10/2020 10:00 AM EDT ASSESSMENT: 1. 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 Combined forms of age-related cataract of right eye 3. Pseudophakia, left eye Eylea extended to Q8 weeks. Injection History: New CRVO since May 2019 in [place]. Lucentis in past but switched to Eylea 01/2020. 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 PCIOL PLAN: Doing well with Eylea OS at Q8 weeks. Extend to 8-10 weeks. Eylea OS #1/3 Today Please schedule the followin-10 weeks Eylea OS #2/3 MSO only 8-10 weeks Eylea OS #3/3 MSO only 8-10 weeks for Re-eval FV+MSO with DFE/OCT. DFE in procedure room OK. Also schedule next available cataract consult for right eye at patient's convenience. Cody Francisco MD documented in this encounter Plan of Treatment Upcoming Encounters Date Type Specialty Care Team Description 01/21/2022 Office Visit Ophthalmology Cody Francisco MD [facility] [address] OPHTHALMOLOGY [place], [place] [address] (Wo rk) documented as of this encounter Procedures Procedure Name Priority Date/Time Associated Diagnosis Comme nts OCT RETINA - OU - Routine 11/10/2020 11:19 AM Central retinal vein Results for this BOTH EYES EDT occlusion with procedure are in macular edema of the results left eye section. documented in this encounter Results OCT Retina - OU - Both Eyes (11/10/2020 11:19 AM EDT) Anatomical Region Laterality Modality Other Specimen (Source) Anatomical Location Collection Method / Collectio n Time Received Time / Laterality Volume Narrative 11/10/2020 11:19 AM EDT Right Eye Quality was good. Scan locations include d subfoveal. Progression has been stable. Findings include normal observat ions, normal foveal contour. Left Eye Quality was good. Scan locations include d subfoveal. Progression has been stable. Findings include cystoid macular edema, intraretinal fluid, abnormal foveal contour. Cody Francisco MD OPHTHALMOLOGY SERVICES ORDER CRIS documented in this encounter Visit Diagnoses Diagnosis Central retinal vein occlusion with macu lar edema of left eye Combined forms of age-related cataract o f right eye Other and combined forms of senile catar act Pseudophakia, left eye Lens replaced by other means documented in this encounter Care Teams Motor Man Relationship Specialty Start Date End Date Nathan Ferrera MD PCP - General Family Medicine 04/22/[address] [place] [address] documented as of this encounter
--- OUTSIDE RECORDS SUMMARY | 2021-11-26 01:44 | XMS_ITS | Encounter Summary ---
:1940 Author Organization [facility] [place] [address] Care Team Providers Name Role Phone Nathan Ferrera MD Primary Care Provider [phone] Encounter Details Date Type Department Care Team Description 04/30/2017 Orders Only Gastroenterology at [facility] Blayne Ortega Abnormal MRI of One [facility] D [place] [address] Social History Tobacco Use Types Packs/Day Years Used Date Never Assessed Sex Assigned at Date Recorded Not on file documented as of this encounter Plan of Treatment Upcoming Encounters Date Type Specialty Care Team Description 01/21/2022 Office Visit Ophthalmology Cody Francisco MD [facility] ER DR OPHTHALMOLOGY DE PT [place], [place] [address] (Wo rk) documented as of this encounter Visit Diagnoses Diagnosis Abnormal MRI of abdomen Nonspecific (abnormal) findings on radio logical and other examination of abdominal area, including retroperitoneum documented in this encounter Care Teams Electric Screw Driver Operator Relationship Specialty Start Date End Date Nathan Ferrera MD PCP - General Family Medicine 04/22/[address] [place] [address] documented as of this encounter
--- OUTSIDE RECORDS SUMMARY | 2021-11-26 01:44 | XMS_ITS | Encounter Summary ---
:1940 Author Organization [facility] Address One [facility] [address] [place] [address] Care Team Providers Name Role Phone Nathan Ferrera MD Primary Care Provider [phone] Reason for Visit Reason Comments Procedure Encounter Details Date Type Department Care Team Description 11/16/2021 Procedure visit Ophthalmology at [facility] Cody Treadwell, Central retinal vein [facility] MD occlusion with Drive [facility] [place] [address] CENTER left eye [phone] [place] [address] Social History Tobacco Use Types Packs/Day Years Used Date Former Smoker Quit: 1994 Smokeless Tobacco: Never Used Alcohol Use Standard Drinks/Week Comments Yes 0 (1 standard drink = 0.6 oz pure alcoho l) Sex Assigned at Date Recorded Not on file documented as of this encounter Patient Instructions Patient InstructionsJyoti Black - 11/16/2021 10:30 AM EDT Today you had your left [...] about driving: We always recommend having a deliver driver on the day you get an [...] Normal and Not Expected side effects: Call [phone] (Eye Clinic) DAY or NIGHT, HOLIDAY or [...] encounter Progress Notes Cody Francisco MD - 11/16/2021 10:30 AM EDT ASSESSMENT: 1. 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 DFE in procedure room OK. Planned Eylea OS I have seen the patient in person and reviewed the resident's history and I agree with the details as written. The assessment and plan were formulated in discussion with me and I agree with them as documented. Cody Francisco MD Andrea Hernandez MD - 11/16/2021 10:30 AM EDT Andrea Hernandez MD PGY-2 I saw the patient with the following level of supervision from the attending: Direct from Dr. Francisco during this encounter. documented in this encounter Miscellaneous Notes Addendum Note - Cody Francisco MD - 11/16/2021 10:30 AM EDT Addended by: CODY FRANCISCO on: 11/16/2021 06:28 PM Modules accepted: Level of Service documented in this encounter Plan of Treatment Upcoming Encounters Date Type Specialty Care Team Description 01/21/2022 Office Visit Ophthalmology Cody Francisco MD [facility] DR OPHTHALMOLOGY [place], [place] [address] (Wo rk) documented as of [...] Eyl ea 2.0 mg left eye Assist: University Relations Recruiter Anesthesia: Topical proparacaine and top ical 4% lidocaine Complications: None Procedure: The patient was taken to the minor treatment suite where the patient was reidentified using name and birthdate as critical identifiers. The correct eye as the operative site wa s reidentified by preplaced site payton, and the consent form was actively reviewed by the assistant art director and the surgeon. The left eye was prepped including insti llation of Betadine 5% into the left cul de sac for 5 minutes, facial pr ep with ophthalmic Betadine, placement of a lid speculum. The Surgeon performed hand washing preop eratively, used gloves, and wore a face mask or used no talking technique during the procedure, as did the certified surgical assistant. After topical anesthesia of the injectio [...] call the Eye Clinic or Eye Doctor automation qa tester, should they devel op pain in the [...] Action Date Dose Rate Site aflibercept (Eylea) ophthalmic Given 11/16/2021 12:00 PM EDT 2 m g Left Eye injection 2 mg 2 mg, Intravitreal, ONCE, 1 dose, On Fri11/16/21 at 1200, Routine documented in this encounter Care Teams Spectacle Truer Relationship Specialty Start Date End Date Nathan Ferrera MD PCP - General Family Medicine 04/22/17 [address] [place] [address] documented as of this encounter
--- OUTSIDE RECORDS SUMMARY | 2021-11-26 01:44 | XMS_ITS | Encounter Summary ---
:1940 Author Organization [facility] Address One [facility] [place] [address] Care Team Providers Name Role Phone Nathan Ferrera MD Primary Care Provider [phone] Reason for Visit Reason Comments Retinal Vein Occlusion Procedure Encounter Details Date Type Department Care Team Description 12/11/2019 Procedure visit Ophthalmology at [facility] C Cody Francisco, Central retinal vein [facility] MD occlusion with Drive [facility] [place] [address] CENTER left eye [phone] [place] [address] Social History Tobacco Use Types Packs/Day Years Used Date Former Smoker Quit: 1994 Smokeless Tobacco: Never Used Alcohol Use Standard Drinks/Week Comments Yes 0 (1 standard drink = 0.6 oz pure alcoho l) Sex Assigned at Date Recorded Not on file documented as of this encounter Patient Instructions Patient InstructionsGagandeep Chambers - 12/11/2019 10:00 AM EDT Today you had your left [...] about driving: We always recommend having a route sales driver on the day you get an [...] Normal and Not Expected side effects: Call [phone] (Eye Clinic) DAY or NIGHT, HOLIDAY or [...] encounter Progress Notes Cody Francisco MD - 12/11/2019 10:00 AM EDT ASSESSMENT: 1. 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 PLAN: Persistent CME OS despite Lucentis, try Eylea next time. Patient also requests updated MRX. Follow up 4-5 weeks for MRX, ndOCT + MSO only Eylea OS. Keep Ozurdex as option in future as well Sooner PRN Cody Perdue. MD Nolan documented in this encounter Plan of Treatment Upcoming Encounters Date Type Specialty Care Team Description 01/21/2022 Office Visit Ophthalmology Cody Francisco MD [facility] OPHTHALMOLOGY [place] [address] (Wo rk) documented as of this encounter Procedures Procedure Name Priority Date/Time Associated Comments Diagnosis INTRAVITREAL INJECTION Routine 12/11/2019 11:20 Central retina l Results for this PHARMACOLOGIC AGENT - AM EDT vein occlusion with procedure are in OS - LEFT EYE macular edema of the result s left eye section. OCT RETINA - OU - BOTH Routine 12/11/2019 11:15 Central retina l Results for this EYES AM EDT vein occlusion with procedur e are in macular edema of the results left eye section. documented in this encounter Results Intravitreal Injection Pharmacologic Agent - OS - Left Eye (12/11/2019 11:20 AM EDT) Anatomical Region Laterality Modality Other Specimen (Source) Anatomical Location Collection Method / Collectio n Time Received Time / Laterality Volume Narrative 12/11/2019 11:20 AM EDT Pre Operative Diagnosis: Central Retinal Vein Occlusion - retina l edema Post Operative Diagnosis: Central Retinal Vein Occlusion - retina l edema Procedure: Intravitreal injection of Tuan entis 0.5 mg left eye Assist: Kaiako Kohanga Reo Anesthesia: Topical proparacaine and top ical 4% lidocaine Complications: None Procedure: The patient was taken to the minor treatment suite where the patient was reidentified using name and birthdate as critical identifiers. The correct eye as the operative site wa s reidentified by preplaced site payton, and the consent form was actively reviewed by the ssn/ssbn assistant navigator and the surgeon. The left eye was [...] using multiple Q-tips soaked in 4%Lidocaine, Ranibizumab (Tarrant ntis) 0.5 mg was injected with a [...] call the Eye Clinic or Eye Doctor superintendent production, should the y develop pain in the treated eye, increasing redness or a discharge from t he eye. Condition on Discharge: Stable. Cody Francisco MD OPHTHALMOLOGY SERVICES ORDER CRIS OCT Retina - OU - Both Eyes (12/11/2019 11:15 AM EDT) Anatomical Region Laterality Modality Other Specimen (Source) Anatomical Location Collection Method / Collectio n Time Received Time / Laterality Volume Narrative 12/11/2019 11:15 AM EDT Right Eye Quality was good. Scan locations include d subfoveal. Findings include normal observations, normal foveal conto ur. Left Eye Quality was good. Scan locations include d subfoveal. Findings include cystoid macular edema, intraretinal flui d, abnormal foveal contour. Cody Francisco MD OPHTHALMOLOGY SERVICES ORDER CRIS documented in this encounter Visit Diagnoses Diagnosis Central retinal vein occlusion with macu lar edema of left eye documented in this encounter Administered Medications Inactive Administered Medications - up to 3 most recent administrations Medication Order MAR Action Action Date Dose Rate Site ranibizumab (LUCENTIS) Given 12/11/2019 11:45 AM 0.5 mg Left Eye ophthalmic injection 0.5 mg EDT 0.5 mg, Intravitreal, ONCE, 1 dose, On 12/11/19 at 1145, Vial contents must be withdrawn using a 5 micron filter needle prior to administration , Routine documented in this encounter Care Teams Ship'S Surveyor Relationship Specialty Start Date End Date Nathan Ferrera MD PCP - General Family Medicine 04/22/[address] [facility] [place] [address] documented as of this encounter
--- OUTSIDE RECORDS SUMMARY | 2021-11-26 01:44 | XMS_ITS | Encounter Summary ---
:1940 [place] [address] Care Team Providers Name Role Phone Nathan Ferrera MD Primary Care Provider [phone] Encounter Details Date Type Department Care Team Description 11/19/2017 Laboratory Appointment Lab [address] [place] [address] Social History Tobacco Use Types Packs/Day Years Used Date Former Smoker Smokeless Tobacco: Never Used Sex Assigned at Date Recorded Not on file documented as of this encounter Plan of Treatment Upcoming Encounters Date Type Specialty Care Team Description 01/21/2022 Office Visit Ophthalmology Cody Francisco MD [facility] ER DR OPHTHALMOLOGY [place], [place] [address] (Wo rk) documented as of this encounter Visit Diagnoses Not on filedocumented in this encounter Care Teams Librarian Assistant Relationship Specialty Start Date End Date Nathan Ferrera MD PCP - General Family Medicine 04/22/[address] [place] [address] documented as of this encounter
--- OUTSIDE RECORDS SUMMARY | 2021-11-26 01:44 | XMS_ITS | Encounter Summary ---
:1940 Author Organization [facility] Address One [facility] [place] [address] Care Team Providers Name Role Phone Nathan Ferrera MD Primary Care Provider [phone] Reason for Visit Reason Comments Retinal Vein Occlusion Encounter Details Date Type Department Care Team Description 04/19/2020 Office Visit Ophthalmology at [facility] C Cody Francisco, Central retinal vein [facility] MD occlusion with [facility] [place] [facility] [place] [address] eye [phone] OPHTHALMOLOGY DEPT [place] [address] Social History Tobacco Use Types Packs/Day Years Used Date Former Smoker Quit: 1994 Smokeless Tobacco: Never Used Alcohol Use Standard Drinks/Week Comments Yes 0 (1 standard drink = 0.6 oz pure alcoho l) Sex Assigned at Date Recorded Not on file documented as of this encounter Progress Notes Cody Francisco MD - 04/19/2020 3:15 PM EST ASSESSMENT: 1. 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 Re-eval after monthly Eylea x3, previously used Lucentis with minimal effect. Visual Acuity Visual Acuity (Snellen - Linear) Right Left Dist cc 20/20 -2 20/60 -/+2 Dist ph cc NI Near cc 20/20 20/40-3 Correction: Glasses Eccentric fixation OS @ D&N PLAN: Doing well after switch to Eylea OS. Extend treatments to about 8 weeks by skipping today's injection. Please schedule the following: Follow up around May 25 for ndOCT and Eylea OS MSO only. Keep Ozurdex as option in future as well Sooner PRN Cody Francisco MD documented in this encounter Plan of Treatment Upcoming Encounters Date Type Specialty Care Team Description 01/21/2022 Office Visit Ophthalmology Cody Francisco MD [facility] OPHTHALMOLOGY DE PT [place], [place] [address] (Wo rk) documented as of this encounter Procedures Procedure Name Priority Date/Time Associated Diagnosis Comme nts OCT RETINA - OU - Routine 04/19/2020 5:29 PM Central retinal v ein Results for this BOTH EYES EST occlusion with procedure are in macular edema of the results left eye section. documented in this encounter Results OCT Retina - OU - Both Eyes (04/19/2020 5:29 PM EST) Anatomical Region Laterality Modality Other Specimen (Source) Anatomical Location Collection Method / Collectio n Time Received Time / Laterality Volume Narrative 04/19/2020 5:29 PM EST Right Eye Quality was good. Scan locations include d subfoveal. Progression has been stable. Findings include normal observat ions, normal foveal contour. Left Eye Quality was good. Scan locations include d subfoveal. Progression has improved. Findings include cystoid macul ar edema, intraretinal fluid, abnormal foveal contour. Cody Francisco MD OPHTHALMOLOGY SERVICES ORDER CRIS documented in this encounter Visit Diagnoses Diagnosis Central retinal vein occlusion with macu lar edema of left eye documented in this encounter Care Teams Business Systems Analyst Relationship Specialty Start Date End Date Nathan Ferrera MD PCP - General Family Medicine 04/22/[address] [place] [address] documented as of this encounter
--- OUTSIDE RECORDS SUMMARY | 2021-11-26 01:44 | XMS_ITS | Encounter Summary ---
:1940 Author Organization [facility] Address [address] [facility] [address] [place] [address] Care Team Providers Name Role Phone Nathan Ferrera MD Primary Care Provider [phone] Encounter Details Date Type Department Care Team Description 11/10/2020 Procedure visit Ophthalmology at [facility] Cody Treadwell, Central retinal vein [facility] MD occlusion with Drive [facility] [place] [place] [address] left eye [phone] [place] [address] Social History Tobacco Use Types Packs/Day Years Used Date Former Smoker Quit: 1994 Smokeless Tobacco: Never Used Alcohol Use Standard Drinks/Week Comments Yes 0 (1 standard drink = 0.6 oz pure alcoho l) Sex Assigned at Date Recorded Not on file documented as of this encounter Patient Instructions Patient InstructionsVero Lopez - 11/10/2020 6:30 PM EDT Today you had your left [...] about driving: We always recommend having a armor reconnaissance vehicle driver on the day you get an [...] Normal and Not Expected side effects: Call [phone] (Eye Clinic) DAY or NIGHT, HOLIDAY or [...] symptoms of concern documented in this encounter Plan of Treatment Upcoming Encounters Date Type Specialty Care Team Description 01/21/2022 Office Visit Ophthalmology Cody Francisco MD [facility] OPHTHALMOLOGY [place], [place] [address] (Wo rk) documented as of this encounter Procedures Procedure Name Priority Date/Time Associated Comments Diagnosis INTRAVITREAL INJECTION Routine 11/10/2020 12:34 Central retina l Results for this PHARMACOLOGIC AGENT - PM EDT vein occlusion with procedure are in OS - LEFT EYE macular edema of the result s left eye section. 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 The correct eye as the operative site wa s reidentified by preplaced site payton, and the consent form was actively reviewed by the nursing home assistant administrator and the surgeon. The left eye was prepped including insti llation of Betadine 5% into the left cul de sac for 5 minutes, facial pr ep with ophthalmic Betadine, placement of a lid speculum. The Surgeon performed hand washing preop eratively, used gloves, and wore a face mask or used no talking technique during the procedure, as did the ophthalmology surgical technician. After topical anesthesia of the injectio n [...] call the Eye Clinic or Eye Doctor clinical nutritionist, should they devel op pain in the [...] Site aflibercept (Eylea) 2 mg/0.05 mL Given 11/10/2020 1:00 PM EDT 2 mg Left Eye ophthalmic injection 2 mg 2 mg, Intravitreal, ONCE, 1 dose, On Fri11/10/20 at 1300, Routine documented in this encounter Care Teams Brand Inspector Relationship Specialty Start Date End Date Nathan Ferrera MD PCP - General Family Medicine 04/22/[address] [place] [address] [address] [place] [address] documented as of this encounter
--- OUTSIDE RECORDS SUMMARY | 2021-11-26 01:44 | XMS_ITS | Encounter Summary ---
:1940 Author Organization [facility] Address [address] [place] [address] Care Team Providers Name Role Phone Nathan Ferrera MD Primary Care Provider Reason for Visit Reason Comments Procedure Encounter Details Date Type Department Care Team Description 10/07/2019 Procedure visit Ophthalmology at [facility] Cody Treadwell, Central retinal vein [facility] MD occlusion with Drive [facility] [place] [address] left eye [phone] [place] [address] Social History Tobacco Use Types Packs/Day Years Used Date Former Smoker Quit: 1994 Smokeless Tobacco: Never Used Alcohol Use Standard Drinks/Week Comments Yes 0 (1 standard drink = 0.6 oz pure alcoho l) Sex Assigned at Date Recorded Not on file documented as of this encounter Patient Instructions Patient InstructionsCody Francisco MD - 10/07/2019 11:15 AM EDT Today you had your left [...] about driving: We always recommend having a corporate driver on the day you get an [...] Normal and Not Expected side effects: Call [phone] (Eye Clinic) DAY or NIGHT, HOLIDAY or [...] Office Visit Ophthalmology Cody Francisco MD [facility] OPHTHALMOLOGY [place] [address] (Wo rk) documented as of this encounter Procedures Procedure Name Priority Date/Time Associated Comments Diagnosis INTRAVITREAL INJECTION Routine 10/07/2019 11:22 Central retina l Results for this PHARMACOLOGIC AGENT - AM EDT vein occlusion with procedure are in OS - LEFT EYE macular edema of the result s left eye section. documented in this encounter Results Intravitreal Injection Pharmacologic Agent - OS - Left Eye (10/07/2019 11:22 AM EDT) Anatomical Region Laterality Modality Other Specimen (Source) Anatomical Location Collection Method / Collectio n Time Received Time / Laterality Volume Narrative 10/07/2019 11:22 AM EDT Pre Operative Diagnosis: Central Retinal Vein Occlusion - retina l edema Post Operative Diagnosis: Central Retinal Vein Occlusion - retina l edema Procedure: Intravitreal injection of Tuan entis 0.5 mg left eye Assist: Variety Lathe Operator Anesthesia: Topical proparacaine and top ical 4% lidocaine Complications: None Procedure: The patient was taken to the minor treatment suite where the patient was reidentified using name and birthdate as critical identifiers. The correct eye as the operative site wa s reidentified by preplaced site payton, and the consent form was actively reviewed by the assistant guest services manager and the surgeon. The left eye was prepped including insti llation of Betadine 5% into the left cul de sac for 5 minutes, facial pr ep with ophthalmic Betadine, placement of a lid speculum. The Surgeon performed hand washing preop eratively, used gloves, and wore a face mask or used no talking technique during the procedure, as did the assistant basketball coach. After topical anesthesia of the injectio n site using multiple Q-tips soaked in 4%Lidocaine, Ranibizumab (Irion ntis) 0.5 mg was injected with a [...] call the Eye Clinic or Eye Doctor substation supervisor, should the y develop pain in the treated eye, increasing redness or a discharge from t he eye. Condition on Discharge: Stable. Cody Francisco MD OPHTHALMOLOGY SERVICES ORDER CRIS documented in this encounter Visit Diagnoses Diagnosis Central retinal vein occlusion with macu lar edema of left eye documented in this encounter Care Teams Sewage Plant Attendant Relationship Specialty Start Date End Date Nathan Ferrera MD PCP - General Family Medicine 04/22/[address] [place] [address] documented as of this encounter
--- OUTSIDE RECORDS SUMMARY | 2021-11-26 01:44 | XMS_ITS | Encounter Summary ---
:1940 Author Organization [facility] Address [facility] [place] [address] Care Team Providers Name Role Phone Nathan Ferrera MD Primary Care Provider [phone] Reason for Referral Diagnostic Test (Routine) - Closed Specialty Diagnoses / Procedures Referred By Contact Refer red To Contact Radiology Diagnoses Liver mass Nathan Ferrera MD [facility] Rad Mri Procedures MRI Abdomen wwo Contrast (Generic) [address] [place] [address] [place] [address] Phone: Referral ID Status Reason Start Date Expiration Date Visits V isits Requested Authorized [id number] Closed Specialty 04/15/2017 04/15/2018 1 1 Service Requested Reason for Visit Diagnostic Test (Routine) - Closed Specialty Diagnoses / Procedures Referred By Contact Refer red To Contact Radiology Diagnoses Liver mass Nathan Ferrera MD [facility] Rad Mri Procedures MRI Abdomen wwo Contrast (Generic) [address] [place], [place] [address] [place] [address] Phone: Referral ID Status Reason Start Date Expiration Date Visits V isits Requested Authorized [id number] Closed Specialty 04/15/2017 04/15/2018 1 1 Service Requested Encounter Details Date Type Department Care Team Description 04/22/2017 Hospital Encounter MRI at [facility] Nathan Ferrera, Liver mass [facility] [address] [place] [address] [place] [address] (Wo rk) Social History Tobacco Use Types [...] Ophthalmology Cody Francisco MD [facility] ER DR OPHTHALMOLOGY [place], [place] [address] (Wo rk) documented as of this encounter Procedures Procedure Name Priority Date/Time Associated Diagnosis Comme nts MRI ABDOMEN WWO Routine 04/22/2017 1:25 PM Liver mass Result s for this CONTRAST EST procedure are i n the results section. documented in this encounter Results MRI Abdomen wwo Contrast (Generic) (04/22/2017 1:25 PM EST) Anatomical Region Laterality Modality Abdomen Magnetic Resonance Specimen (Source) Anatomical Location Collection Method / Collectio n Time Received Time / Laterality Volume Impressions 04/22/2017 5:30 PM EST 1. ??15 mm lesion in segment 4A is not typical of any common entity, and cannot be definitively characterized. The diffe rential diagnosis is broad and includes: hemangioma, hepatic adenoma, vascular ab normality such as an arterial portal fistula, focal nodular hyperplasia, less likely malignant process. Consider obtaining an ultrasound determined if th is is visible on ultrasonography which could then be used as a means to follow up to evaluate for growth. 2. ??Large hiatal hernia. I have personally reviewed the image(s) and the residents interpretation and agree with the findings, Alejandrina feng 04/22/2017 5:30 PM Narrative 04/22/2017 5:30 PM EST EXAMINATION: MRI ABDOMEN WWO CONTRAST (GENERIC) CLINICAL HISTORY: liver mass seen on CT. Chest CT done on 03/27/17. Dynamic MRI. TECHNIQUE: MRI of the abdomen was perfor med with images obtained prior to and following intravenous administration of 18ml of Dotarem using the dynamic liver protocol. COMPARISONS: Chest CT with contrast date d March 27, 2017. FINDINGS: Please note the study is limited due to patient motion artifact. Lower chest: Large hiatal hernia. Liver: Normal liver size and signal inte nsity on noncontrast images, without visible lesions prior to administration of contrast. There is a 15 mm lesion segment 4A that is isointense on T2 and T1-weighted images. Postcontrast, there is homogeneo us enhancement of this somewhat poorly marginated lesion on the 30 second delay , mild persistent hyperenhancement on the 1 minute delay, becoming isointense on the 3 minute delays. No other hepatic lesions are present. Bile ducts: Nondilated. Gallbladder: No gallstones. Normal calib er wall. Pancreas: Normal. Spleen: Normal. Adrenals: Normal. Kidneys: Small contour abnormality along the posterior medial left kidney consistent with focal scarring. No enhan cing or cystic renal lesions or collecting system dilatation. Consistent with a small parenchymal scar. Vasculature: No aneurysm. Lymph nodes: No enlarged lymph nodes. Bowel: Nondilated, no inflammatory peres es. Peritoneum and mesentery: No ascites or loculated fluid collection. Marrow Signal: Normal marrow signal wilman acteristics with smooth levoscoliotic curvature of the lumbar spine centered a round L3-4. Procedure Note Alejandrina Vang MD - 04/22/2017Formatt ing of this note might be different from the original. EXAMINATION: MRI ABDOMEN WWO CONTRAST (G ENERIC) CLINICAL HISTORY: liver mass seen on CT. Chest CT done on 03/27/17. Dynamic MRI. TECHNIQUE: MRI of the abdomen was perfor med with images obtained prior to and following intravenous administration of 18ml of Dotarem using the dynamic liver protocol. COMPARISONS: Chest CT with contrast date d March 27, 2017. FINDINGS: Please note the study is limited due to patient motion artifact. Lower chest: Large hiatal hernia. Liver: Normal liver size and signal inte nsity on noncontrast images, without visible lesions prior to administration of contrast. There is a 15 mm lesion segment 4A that is isointense on T2 and T1-weighted images. Postcontrast, there is homogeneo us enhancement of this somewhat poorly marginated lesion on the 30 second delay , mild persistent hyperenhancement on the 1 minute delay, becoming isointense on the 3 minute delays. No other hepatic lesions are present. Bile ducts: Nondilated. Gallbladder: No gallstones. Normal calib er wall. Pancreas: Normal. Spleen: Normal. Adrenals: Normal. Kidneys: Small contour abnormality along the posterior medial left kidney consistent with focal scarring. No enhan cing or cystic renal lesions or collecting system dilatation. Consistent with a small parenchymal scar. Vasculature: No aneurysm. Lymph nodes: No enlarged lymph nodes. Bowel: Nondilated, no inflammatory peres es. Peritoneum and mesentery: No ascites or loculated fluid collection. Marrow Signal: Normal marrow signal wilman acteristics with smooth levoscoliotic curvature of the lumbar spine centered a round L3-4. IMPRESSION 1. 15 mm lesion in segment 4A is not typ ical of any common entity, and cannot be definitively characterized. The diffe rential diagnosis is broad and includes: hemangioma, hepatic adenoma, vascular ab normality such as an arterial portal fistula, focal nodular hyperplasia, less likely malignant process. Consider obtaining an ultrasound determined if th is is visible on ultrasonography which could then be used as a means to follow up to evaluate for growth. 2. Large hiatal hernia. I have personally reviewed the image(s) and the residents interpretation and agree with the findings, Alejandrina feng 04/22/2017 5:30 PM Nathan Ferrera MD [facility] ORDERABLES documented in this encounter Visit Diagnoses Diagnosis Liver mass Unspecified disorder of liver documented in this encounter Administered Medications Inactive Administered Medications - up to 3 most recent administrations Medication Order MAR Action Action Date Dose Rate Site gadoterate meglumine (DOTAREM) 0.5 Given 04/22/2017 1:00 PM EST 18 mLs mmol/mL injection 0-20 mL/kg 0-20 mL/kg/dose, Intravenous, ONCE PRN, 1 dose, Starting on Fri04/22/17 at 1326, Until Fri04/22/17 at 1300, Per Protocol, Radiology Contrast, Routine documented in this encounter Care Teams Lead Manufacturing Engineering Tech Relationship Specialty Start Date End Date Nathan Ferrera MD PCP - General Family Medicine 04/22/[address] [place] [address] documented as of this encounter
--- OUTSIDE RECORDS SUMMARY | 2021-11-26 01:44 | XMS_ITS | Encounter Summary ---
:1940 Author Organization [facility] [place] [address] Care Team Providers Name Role Phone Nathan Ferrera MD Primary Care Provider [phone] Reason for Visit Reason Onset Date Comments Follow-up 11/08/2019 Encounter Details Date Type Department Care Team Description 11/08/2019 Telephone Ophthalmology at [facility] Cody Treadwell MD Follow-up [place] [address] OPHTHALMOLOGY DEPT [phone] [place], [place] [address] (Wo rk) Social History Tobacco Use Types Packs/Day Years Used Date Former Smoker Quit: 1994 Smokeless Tobacco: Never Used Alcohol Use Standard Drinks/Week Comments Yes 0 (1 standard drink = 0.6 oz pure alcoho l) Sex Assigned at Date Recorded Not on file documented as of this encounter Miscellaneous Notes Telephone Encounter - Carol Pickard - 11/09/2019 12:26 PM EDT Scheduled Telephone Encounter - Angelika Chapman - 11/08/2019 2:31 PM EDT I have called and left a message for patient to call and schedule an appointment. 0 Return for Follow up 4-5 weeks for ndOCT + MSO only Lucentis OS.. documented in this encounter Plan of Treatment Upcoming Encounters Date Type Specialty Care Team Description 01/21/2022 Office Visit Ophthalmology Cody Francisco MD [facility] OPHTHALMOLOGY [place], [place] [address] (Wo rk) documented as of this encounter Visit Diagnoses Not on filedocumented in this encounter Care Teams Scientific Informatics Analyst Relationship Specialty Start Date End Date Nathan Ferrera MD PCP - General Family Medicine 04/22/[address] [place] [address] documented as of this encounter
--- OUTSIDE RECORDS SUMMARY | 2021-11-26 01:44 | XMS_ITS | Encounter Summary ---
:1940 Author Organization [facility] Address [address] [place] [address] Care Team Providers Name Role Phone Nathan Ferrera MD Primary Care Provider [phone] Reason for Visit Reason Comments Retinal Vein Occlusion Encounter Details Date Type Department Care Team Description 03/16/2021 Office Visit Ophthalmology at [facility] C Cody Francisco, Central retinal vein occlusi on with macular edema of left eye; [facility] Pseudophakia, left eye; Drive [facility] [place] [address] [address] [phone] OPHTHALMOLOGY DEPT [place], [place] [address] Social History Tobacco Use Types Packs/Day Years Used Date Former Smoker Quit: 1994 Smokeless Tobacco: Never Used Alcohol Use Standard Drinks/Week Comments Yes 0 (1 standard drink = 0.6 oz pure alcoho l) Sex Assigned at Date Recorded Not on file documented as of this encounter Patient Instructions Patient InstructionsMariela Moseley, ROXY - 03/16/2021 4:00 PM EDT Today you had your left [...] about driving: We always recommend having a regional driver on the day you get an [...] Normal and Not Expected side effects: Call [phone] (Eye Clinic) DAY or NIGHT, HOLIDAY or [...] encounter Progress Notes Cody Francisco MD - 03/16/2021 4:00 PM EDT ASSESSMENT: 1. 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 Pseudophakia, left eye 3. History of retinal detachment Eylea 8-10 Weeks. Re-eval since patient leaving for [place] for winter. 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 Lucentis in past but switched to Eylea 01/2020. 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 Recommend staying on this schedule. Eylea OS Today Follow up in [place] in 8-10 weeks for Eylea OS for CRVO. He wants to try being seen at [facility]. Will send this note as referral. Follow up at [facility] when he returns from [place]. DFE/OCT/Likely Eylea OS for CRVO. Cody Francisco MD documented in this encounter Plan of Treatment Upcoming Encounters Date Type Specialty Care Team Description 01/21/2022 Office Visit Ophthalmology Cody Francisco MD [facility] [address] OPHTHALMOLOGY [place] [address] (Wo rk) documented as of this encounter Procedures Procedure Name Priority Date/Time Associated Diagnosis Comme nts OCT RETINA - OU - Routine 03/16/2021 5:06 PM Central retinal v ein Results for this BOTH EYES EDT occlusion with procedure are in macular edema of the results left eye section. documented in this encounter Results OCT Retina - OU - Both Eyes (03/16/2021 5:06 PM EDT) Anatomical Region Laterality Modality Other Specimen (Source) Anatomical Location Collection Method / Collectio n Time Received Time / Laterality Volume Narrative 03/16/2021 5:06 PM EDT Right Eye Quality was good. [...] with macu lar edema of left eye Pseudophakia, left eye Lens replaced by other means History of retinal detachment Personal history of other disorders of n ervous system and sense organs documented in this encounter Care Teams Grain Mixer Relationship Specialty Start Date End Date Nathan Ferrera MD PCP - General Family Medicine 04/22/[address] [place] [address] documented as of this encounter
--- OUTSIDE RECORDS SUMMARY | 2021-11-26 01:44 | XMS_ITS | Encounter Summary ---
:1940 Author Organization [facility] Address [address] [place] [address] Care Team Providers Name Role Phone Nathan Ferrera MD Primary Care Provider [phone] Reason for Visit Reason Comments Procedure Encounter Details Date Type Department Care Team Description 07/22/2020 Procedure visit Ophthalmology at [facility] Cody Treadwell, Central retinal vein [facility] MD occlusion with Drive [facility] [place] [address] CENTER left eye [phone] [place] [address] Social History Tobacco Use Types Packs/Day Years Used Date Former Smoker Quit: 1994 Smokeless Tobacco: Never Used Alcohol Use Standard Drinks/Week Comments Yes 0 (1 standard drink = 0.6 oz pure alcoho l) Sex Assigned at Date Recorded Not on file documented as of this encounter Patient Instructions Patient InstructionsVero Lopez - 07/22/2020 11:30 AM EST Today you had your left [...] about driving: We always recommend having a class b driver on the day you get an [...] Normal and Not Expected side effects: Call [phone] (Eye Clinic) DAY or NIGHT, HOLIDAY or [...] encounter Progress Notes Cody Francisco MD - 07/22/2020 11:30 AM EST ASSESSMENT: 1. 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 8 weeks Eylea OS #2/3 MSO only PLAN: Follow up as scheduled: 8 weeks Eylea OS #3/3 MSO only 8 weeks for Re-eval FV+MSO with DFE/OCT and planned Eylea OS Cody Francisco MD documented in this encounter Plan of Treatment Upcoming Encounters Date Type Specialty Care Team Description 01/21/2022 Office Visit Ophthalmology Cody Francisco MD ONE [facility] OPHTHALMOLOGY [place], [place] [address] (Wo rk) documented as of this encounter Procedures Procedure Name Priority Date/Time Associated Comments Diagnosis INTRAVITREAL INJECTION Routine 07/22/2020 12:05 Central retina l Results for this PHARMACOLOGIC AGENT - PM EST vein occlusion with procedure are in OS - LEFT EYE macular edema of the result s left eye section. documented in this encounter Results Intravitreal Injection Pharmacologic Agent - OS - Left Eye (07/22/2020 12:05 PM EST) Anatomical Region Laterality Modality Other Specimen (Source) Anatomical Location Collection Method / Collectio n Time Received Time / Laterality Volume Narrative 07/22/2020 12:05 PM EST Pre Operative Diagnosis: Central Retinal Vein Occlusion - retina l edema Post Operative Diagnosis: Central Retinal Vein Occlusion - retina l edema Procedure: Intravitreal injection of Eyl ea 2.0 mg left eye Assist: Dental Hygienist Anesthesia: Topical proparacaine and top ical 4% lidocaine Complications: None Procedure: The patient was taken to the minor treatment suite where the patient was reidentified using name and birthdate as critical identifiers. The correct eye as the operative site wa s reidentified by preplaced site payton, and the consent form was actively reviewed by the medical assistant internal medicine and the surgeon. The left eye was prepped including insti llation of Betadine 5% into the left cul de sac for 5 minutes, facial pr ep with ophthalmic Betadine, placement of a lid speculum. The Surgeon performed hand washing preop eratively, used gloves, and wore a face mask or used no talking technique during the procedure, as did the account management assistant. After topical anesthesia of the injectio [...] call the Eye Clinic or Eye Doctor corrosion control fitter, should they devel op pain in the [...] Rate Site aflibercept (Eylea) 2 mg/0.05 Given 07/22/2020 12:30 PM EST 2 mg Left Eye mL ophthalmic injection 2 mg 2 mg, Intravitreal, ONCE, 1 dose, On 07/22/20 at 1230, Routine documented in this encounter Care Teams Assistant Professor Of Mathematics Relationship Specialty Start Date End Date Nathan Ferrera MD PCP - General Family Medicine 04/22/[address] [place] [address] documented as of this encounter
--- OUTSIDE RECORDS SUMMARY | 2021-11-26 01:44 | XMS_ITS | Encounter Summary ---
:1940 Author Organization [facility] [place] [address] Care Team Providers Name Role Phone Nathan Ferrera MD Primary Care Provider [phone] Reason for Visit Reason Comments Blurred Vision Glare Consultation (Routine) - Closed Specialty Diagnoses / Procedures Referred By Contact Refer red To Contact Ophthalmology Diagnoses CRVO Yury Pereyra MD Batra, Nikhil N, MD [address] [facility] [address] [place] [address] OPHTHALMOLOGY DEPT [place] [id number] Phone: Fax: Referral ID Status Reason Start Date Expiration Date Visits V isits Requested Authorized [id number] Closed Consult, 09/09/2019 09/08/2020 1 1 Test & Treat Encounter Details Date Type Department Care Team Description 10/07/2019 Office Visit [facility] Cody Francisco, Central retinal vein occlusi on with macular edema of left eye; [facility] History of [place] [address] CENTER [phone] OPHTHALMOLOGY DEPT [place], [place] [address] Social History Tobacco Use Types Packs/Day Years Used Date Former Smoker Quit: 1994 Smokeless Tobacco: Never Used Alcohol Use Standard Drinks/Week Comments Yes 0 (1 standard drink = 0.6 oz pure alcoho l) Sex Assigned at Date Recorded Not on file documented as of this encounter Progress Notes Cody Francisco MD - 10/07/2019 8:30 AM EDT ASSESSMENT: 1. 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 New CRVO since May 2019 in [place]. [facility] X [address] Pereyra. Hx of RD as a child OS self sealed with early Cataract now s/p CE/IOL Visual Acuity Visual Acuity (Snellen - Linear) Right Left Dist cc 20/20 -2 5/200 Dist ph cc NI Near cc 20/30-1 20/400 Correction: Glasses OD: normal retina OS: CRVO with CME PLAN: Stay on schedule with monthly [facility] OS for now. Visual prognosis guarded given poor presenting vision and likely ischemic CRVO Follow up 4-5 weeks for ndOCT + MSO only [facility] OS May consider cataract consult later this year, but vision 20/20 at the moment OD. Sooner PRN I, Ruben Lowery, have performed the documentation for this encounter in the presence of and acting asa scribe for Cody Francisco MD. I performed the services which were documented by the scribe, and I agree with the accuracy of the documentation in this encounter. Cody Francisco MD documented in this encounter Plan of Treatment Upcoming Encounters Date Type Specialty Care Team Description 01/21/2022 Office Visit Ophthalmology Cody Francisco MD [facility] OPHTHALMOLOGY [place], [place] [address] (Wo rk) documented as of this encounter Procedures Procedure Name Priority Date/Time Associated Diagnosis Comme nts OCT RETINA - OU - Routine 10/07/2019 10:36 AM Central retinal vein Results for this BOTH EYES EDT occlusion with procedure are in macular edema of the results left eye section. documented in this encounter Results OCT Retina - OU - Both Eyes (10/07/2019 10:36 AM EDT) Anatomical Region Laterality Modality Other Specimen (Source) Anatomical Location Collection Method / Collectio n Time Received Time / Laterality Volume Narrative 10/07/2019 10:36 AM EDT Right Eye Quality was good. [...] with macu lar edema of left eye History of retinal detachment Personal history of other disorders of n ervous system and sense organs documented in this encounter Care Teams Roll Contour Grinder Relationship Specialty Start Date End Date Nathan Ferrera MD PCP - General Family Medicine 04/22/[address] [place] [address] documented as of this encounter
--- OUTSIDE RECORDS SUMMARY | 2021-11-26 01:44 | XMS_ITS | Encounter Summary ---
:1940 Author Organization [facility] [place] [address] Care Team Providers Name Role Phone Onesimo Coyle MD Primary Care Provider Encounter Details Date Type Department Care Team Description 03/27/2017 Hospital Encounter Radiology Library at Miguel Peck MD Pain [facility] [place] [address] [place] [address] [phone] (Wo rk) Social History Tobacco Use Types [...] 01/21/2022 Office Visit Ophthalmology Cody Francisco MD [facility] DR OPHTHALMOLOGY DE PT [place], [place] [address] (Wo rk) documented as of this encounter Procedures Procedure Name Priority Date/Time Associated Diagnosis Comme nts FILM LIBRARY Routine 03/27/2017 12:00 AM Pain Results for this STORAGE ONLY CT EST procedure ar e in CHEST the results section. documented in this encounter Results Film Library- Storage Only CT Chest (03/27/2017 12:00 AM EST) Specimen (Source) Anatomical Location Collection Method / Collectio n Time Received Time / Laterality Volume Narrative ERICK - 04/10/2017 10:08 AM EST This exam is for storage only and is aut o-finalizing. Miguel Peck MD IMG FILM LIBRARY ORDERABLES Performing Organization Address City/State/ZIP Code Phon e Number [place], [place] documented in this encounter Visit Diagnoses Diagnosis Pain Generalized pain documented in this encounter Care Teams Sales Operations Coordinator Relationship Specialty Start Date End Date Onesimo Coyle MD PCP - General 04/03/10 04/21/17 [address] [place] [address] documented as of this encounter
--- OUTSIDE RECORDS SUMMARY | 2021-11-26 01:44 | XMS_ITS | Encounter Summary ---
:1940 Author Organization [facility] [place] [address] Care Team Providers Name Role Phone Nathan Ferrera MD Primary Care Provider [phone] Reason for Visit Reason Comments Follow-up Encounter Details Date Type Department Care Team Description 11/19/2017 Office Visit Gastroenterology at [facility] Mira Jimenez Hepatic cirrhosis, unspecifi ed hepatic cirrhosis type, unspecified whether ascites present; [facility] Anika Mckeon APRN Liver lesion; [place] [address] [facility] Abnormal findings on diagnos tic imaging of liver and biliary tract [phone] [place] [address] Social History Tobacco Use Types Packs/Day Years Used Date Former Smoker Smokeless Tobacco: Never Used Sex Assigned at Date Recorded Not on file documented as of this encounter Last Filed Vital Signs Vital Sign Reading [...] Mass Index 25.32 11/19/2017 11:48 AM EDT documented in this encounter Progress Notes Mira Jimenez APRN - 11/19/2017 11:30 AM EDT Images from the original note were not included. Hepatology Follow Up Note Patient: Edward Phillip Gender: male : 1940 Provider: Mira Jimenez NP Referring Physician: Nathan Ferrera MD Edward Phillip is a 76 y.o. year old man who I first saw 6 months ago for a questionable liver lesion seen on CT and MRI, which was not characteristic of any entity on imaging, although suspicious for hemangioma, or THID. He returns today for an ultrasound for surveillance of that liver lesion. He has no history of liver disease and his AFP was never elevated. He has been doing well. He had a fall last year and is still having some effects. He was going to , but then, tragically, his physical therapist last month. He denies any abdominal pin PAST MEDICAL/SURGICAL HISTORY GERD Hx of Hepatitis A (suspected) in . MEDICATIONS Outpatient Prescriptions Marked as Taking for the 11/19/17 encounter (Office Visit) with Mira Jimenez APRN Medication Sig Dispense Refill ??? multivitamin (THERAGRAN) Tablet Take 1 tablet by mouth daily. ??? omeprazole (PRILOSEC) 40 mg Capsule, Delayed Release(E.C.) 0 ??? gabapentin (NEURONTIN) 300 mg Capsule take 1 capsule by mouth PRN 0 ??? ibuprofen (ADVIL;MOTRIN) 200 mg Tablet Take 200 mg by mouth every 6 hours as needed for Pain. ALLERGIES No Known Allergies SOCIAL HISTORY Retired - traveled [place] lot in [place] when he was younger, worked as screenwriter, in [place]. 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 Also [place] in [place]. Has a40yo daughter and a 24yo son. Alcohol: 7-14 drinks/week. Never felt like he drank too much. Smoking: None. Quit 25 years ago FAMILY HISTORY No hx of cancer or liver disease. PHYSICAL EXAM Vitals: 11/19/17 1148 Height: 188 cm (6' 2) There is no height or weight on file to calculate BMI. Gen: Well appearing, no apparent distress. Skin: no spider angiomata, no palmar erythema, no jaundice. HEENT: Sclerae anicteric, pupils equal, round, react to light. Pharynx unremarkable. Neck is supple,no adenopathy, no thyromegaly. Abdomen: Normal bowel sounds; soft, non distended. No obvious hepatosplenomegaly. No evidence of ascites Extremities: No edema. Neuro: alert and oriented x3, no asterixis or tremor. Labs 05/08/17: AFP: 2.7 Recent Results (from the past 24 hour(s)) PSA Result Value Ref Range PSA Total 3.69 0.00 - 4.00 ng/mL Comprehensive metabolic panel (non-fasting) Result Value Ref Range Glucose Lvl 105 65 - 199 mg/dL BUN 22 (H) 10 - 20 mg/dL Creatinine 0.87 0.80 - 1.50 mg/dL Sodium 142 135 - 145 mmol/L Potassium 4.2 3.5 - 5.0 mmol/L Chloride 102 98 - 107 mmol/L CO2 29 22 - 31 mmol/L Anion Gap 11 5 - 15 mmol/L Calcium 9.1 8.5 - 10.5 mg/dL Total Protein 6.8 6.1 - 8.0 gm/dL Albumin 4.2 3.2 - 5.2 gm/dL AST 24 0 - 39 unit/L ALT 17 0 - 55 unit/L Alk Phos 76 40 - 120 unit/L Total Bilirubin 0.7 0.2 - 1.3 mg/dL eGFR 83 >=60 mL/min/1.73 m?? eGFR 96 >=60 mL/min/1.73 m?? AFP pending MRI 04/22/17: IMPRESSION 1. 15 mm lesion in segment 4A is not typical of any common entity, and cannot be definitively characterized. The differential diagnosis is broad and includes: hemangioma, hepatic adenoma, vascular abnormality such as an arterial portal fistula, focal nodular hyperplasia, less likely malignant process. Consider obtaining an ultrasound determined if this is visible on ultrasonography which could then be used as a means to follow up to evaluate for growth. 2. Large hiatal hernia. ?? I have personally reviewed the image(s) and the residents interpretation and agree with the findings, Alejandrina Vang at 04/22/2017 5:30 PM Ultrasound 11/19/17: IMPRESSION Smooth liver capsule.Corresponding to findings at MRI is a subtle solitary solid echogenic lesion inthe left liver lobe measuring 1.2 x 1.7 x 1 cm. This is not particularlyvascular. I suspect this represents a hemangioma.No ascites.The visualized hepatic veins, visualized portal veins, and hepatic artery arepatent with normal color and spectral wave forms. ?? ASSESSMENT/PLAN Edward Phillip is a 76 y.o. male who returns today for follow up imaging of a questionable liver lesion seen on CT and MRI. The lesion was visualized on US today and appears most consistent with a hemangioma, which is a benign finding in the liver and does not require follow up. It is reassuring that he has no history of liver disease, the lesion is not vascular and has not grown in the past 6 months. I am rechecking his AFP today, but if that is still normal, I do not believe he needs further follow up for this hemangioma. We discussed these findings and I provided the patient literature on hepatic hemangiomas. He is welcome to call with any other questions. I answered his questions to the best of my ability. Mira Jimenez APRN Section of Gastroenterology [place] [address] 25 of this 30 minute visit in face to face discussion regarding disease, prognosis and treatment Copy: Nathan Ferrera MD [address] / [place] [address] documented in this encounter Plan of Treatment Upcoming Encounters Date Type Specialty Care Team Description 01/21/2022 Office Visit Ophthalmology Cody Francisco MD ONE [facility] OPHTHALMOLOGY [place] [address] (Wo rk) documented as of this encounter Results AFP tumor marker (11/19/2017 10:52 AM EDT) P athologist Signature AFP 2.9 <=8.3 ng/mL [facility] Specimen Anatomical Collection Method Collection Time Receive d Time (Source) Location / / Volume Laterality Blood specimen 11/19/2017 10:52 8 (specimen) AM EDT 11:05 AM EDT Resulting Agency Comment Spec In Lab Mria A Tony MICROPHONE OPERATOR CHEMISTRY ORDERABLES Performing Organization Address City/State/[place] [address] (ABNORMAL) Comprehensive metabolic panel (non-fasting) (11/19/2017 10:52 AM EDT) P athologist Signature Glucose Lvl 105 65 - 199 [facility] mg/dL [facility] Comment: Diabetes: >=200 mg/dL plus symp toms BUN 22 (H) 10 - 20 mg/dL [facility] Creatinine 0.87 0.80 - 1.50 mg/dL [facility] Sodium 142 135 - 145 mmol/L [facility] Potassium 4.2 3.5 - 5.0 mmol/L [facility] Comment: Please note: ??Patients with WBC >100,00 0 may have falsely elevated Potassium levels. ??For accurate Potassium quantif ication in these patients send serum separator tube (gold top) for subsequent determinations. ??Contact the Clinical Chemistry Laboratory if there are any qu estions. Chloride 102 98 - 107 mmol/L [facility] CO2 29 22 - 31 mmol/L [facility] Anion Gap 11 5 - 15 mmol/L [facility] Calcium 9.1 8.5 - 10.5 mg/dL [facility] Total Protein 6.8 6.1 - 8.0 gm/dL [facility] Albumin 4.2 3.2 - 5.2 gm/dL [facility] AST 24 0 - 39 unit/L [facility] ALT 17 0 - 55 unit/L [facility] Alk Phos 76 40 - 120 unit/L [facility] Total Bilirubin 0.7 0.2 - 1.3 mg/dL [facility] Estimated GFR 83 >=60 mL/min/1.73 m?? [facility] Comment: The eGFR was calculated using the CKD-EP I equation. As with all creatinine based estimates of kidney function, eGFR values calculated with the CKD-EPI equation are not accurate in patients wi th acute kidney failure, extremes of body mass or the acutely ill. [email or web address]/Agnitusnkdep [email or web address]/Agnitusnkf eGFR 96 >=60 mL/min/1.73 m?? [facility] Comment: The eGFR was calculated using the CKD-EP I equation. As with all creatinine based estimates of kidney function, eGFR values calculated with the CKD-EPI equation are not accurate in patients wi th acute kidney failure, extremes of body mass or the acutely ill. [email or web address] [email or web address]/[facility] Specimen Anatomical Collection Method Collection Time Receive d Time (Source) Location / / Volume Laterality Blood specimen 11/19/2017 10:52 8 (specimen) AM EDT 11:05 AM EDT Resulting Agency Comment Spec In Lab Mira Jimenez APRN CHEMISTRY ORDERABLES Performing Organization Address City/State/[place] [address] documented in this encounter Visit Diagnoses Diagnosis Hepatic cirrhosis, unspecified hepatic c irrhosis type, unspecified whether ascites present Liver lesion Other specified disorders of liver Abnormal findings on diagnostic imaging of liver and biliary tract documented in this encounter Care Teams Educational Specialist Relationship Specialty Start Date End Date Nathan Ferrera MD PCP - General Family Medicine 04/22/[address] [place] [address] documented as of this encounter
--- OUTSIDE RECORDS SUMMARY | 2021-11-26 01:44 | XMS_ITS | Encounter Summary ---
:1940 Author Organization [facility] [place] [address] Care Team Providers Name Role Phone Nathan Ferrera MD Primary Care Provider [phone] Encounter Details Date Type Department Care Team Description 03/16/2021 Procedure visit Ophthalmology at [facility] Cody Treadwell, Central retinal vein [facility] MD occlusion with [facility] [place] [address] left eye [phone] [place] [address] Social History Tobacco Use Types Packs/Day Years [...] 01/21/2022 Office Visit Ophthalmology Cody Francisco MD [facility] OPHTHALMOLOGY [place], [place] [address] (Wo rk) documented as of this encounter Procedures Procedure Name Priority Date/Time Associated Comments Diagnosis INTRAVITREAL INJECTION Routine 03/16/2021 5:00 PM Central reti nal Results for this PHARMACOLOGIC AGENT - EDT vein occlusion with procedure are in OS - LEFT EYE macular edema of the result s left eye section. documented in this encounter Results Intravitreal Injection Pharmacologic Agent - OS - Left Eye (03/16/2021 5:00 PM EDT) Anatomical Region Laterality Modality Other Specimen (Source) Anatomical Location Collection Method / Collectio n Time Received Time / Laterality Volume Narrative 03/16/2021 5:00 PM EDT Pre Operative Diagnosis: Central Retinal Vein Occlusion - retina l edema Post Operative Diagnosis: Central Retinal Vein Occlusion - retina l edema Procedure: Intravitreal injection of Eyl ea 2.0 mg left eye Assist: Opal Miner Anesthesia: Topical proparacaine and top ical 4% lidocaine Complications: None Procedure: The patient was taken to the minor treatment suite where the patient was reidentified using name and birthdate as critical identifiers. The correct eye as the operative site wa s reidentified by preplaced site payton, and the consent form was actively reviewed by the psych assistant and the surgeon. The left eye was prepped including insti llation of Betadine 5% into the left cul de sac for 5 minutes, facial pr ep with ophthalmic Betadine, placement of a lid speculum. The Surgeon performed hand washing preop eratively, used gloves, and wore a face mask or used no talking technique during the procedure, as did the certified surgical tech/first assistant. After topical anesthesia of the injectio [...] call the Eye Clinic or Eye Doctor fabrication specialist, should they devel op pain in the [...] Site aflibercept (Eylea) 2 mg/0.05 mL Given 03/16/2021 5:30 PM EDT 2 mg Left Eye ophthalmic injection 2 mg 2 mg, Intravitreal, ONCE, 1 dose, On Fri03/16/21 at 1730, Routine documented in this encounter Care Teams Senior Stock Plan Administrator Relationship Specialty Start Date End Date Nathan Ferrera MD PCP - General Family Medicine 04/22/[address] [place] [address] documented as of this encounter
--- OUTSIDE RECORDS SUMMARY | 2021-11-26 01:44 | XMS_ITS | Encounter Summary ---
:1940 Author Organization [facility] Address [address] [place] [address] Care Team Providers Name Role Phone Nathan Ferrera MD Primary Care Provider Reason for Visit Reason Comments Procedure Eylea OS for CRVO Encounter Details Date Type Department Care Team Description 09/21/2021 Procedure visit Ophthalmology at [facility] Cody Treadwell, Central retinal vein [facility] MD occlusion with Drive [facility] [place] [address] [facility] left eye [phone] [place] [address] Social History Tobacco Use Types Packs/Day Years Used Date Former Smoker Quit: 1994 Smokeless Tobacco: Never Used Alcohol Use Standard Drinks/Week Comments Yes 0 (1 standard drink = 0.6 oz pure alcoho l) Sex Assigned at Date Recorded Not on file documented as of this encounter Patient Instructions Patient InstructionsAbdiaziz Luke COA - 09/21/2021 4:25 PM EDT Today you had your left [...] about driving: We always recommend having a customer service driver on the day you get an [...] Normal and Not Expected side effects: Call [phone] (Eye Clinic) DAY or NIGHT, HOLIDAY or [...] encounter Progress Notes Cody Francisco MD - 09/21/2021 4:15 PM EDT ASSESSMENT: 1. 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 [place] back from [place]: stable thickening + CME OS PLAN: He is here for the next 6 months Eylea OS #1/3 Today Please schedule the followin-10 weeks Eylea OS #2/3 MSO only 8-10 weeks Eylea OS #3/3 MSO only 8-10 weeks for Re-eval FV+MSO with DFE/OCT. DFE in procedure room OK. Planned Eylea OS Cody Perdue. MD Nolan documented in this encounter Plan of Treatment Upcoming Encounters Date Type Specialty Care Team Description 01/21/2022 Office Visit Ophthalmology Cody Francisco MD ONE [facility] OPHTHALMOLOGY [place], [place] [address] (Wo rk) documented as of this encounter Procedures Procedure Name Priority Date/Time Associated Comments Diagnosis OCT RETINA - OU - BOTH Routine 09/21/2021 5:17 PM Central reti nal Results for this EYES EDT vein occlusion with procedur e are in macular edema of the results left eye section. INTRAVITREAL INJECTION Routine 09/21/2021 4:45 PM Central reti nal Results for this [...] Eyl ea 2.0 mg left eye Assist: Arbor Press Operator Anesthesia: Topical proparacaine and top ical 4% lidocaine Complications: None Procedure: The patient was taken to the minor treatment suite where the patient was reidentified using name and birthdate as critical identifiers. The correct eye as the operative site wa s reidentified by preplaced site payton, and the consent form was actively reviewed by the corporate law assistant and the surgeon. The left eye was prepped including insti llation of Betadine 5% into the left cul de sac for 5 minutes, facial pr ep with ophthalmic Betadine, placement of a lid speculum. The Surgeon performed hand washing preop eratively, used gloves, and wore a face mask or used no talking technique during the procedure, as did the surgical dental assistant. After topical anesthesia of the injectio [...] call the Eye Clinic or Eye Doctor humanities division chair, should they devel op pain in the treated eye, increasing redness or a discharge from t he eye. Condition on Discharge: Stable. Cody Francisco MD OPHTHALMOLOGY SERVICES ORDER CRIS documented in this encounter Visit Diagnoses Diagnosis Central retinal vein occlusion with macu lar edema of left eye documented in this encounter Care Teams Weatherstrip Machine Operator Relationship Specialty Start Date End Date Nathan Ferrera MD PCP - General Family Medicine 04/22/[address] [place] [address] documented as of this encounter
--- OUTSIDE RECORDS SUMMARY | 2021-11-26 01:44 | XMS_ITS | Encounter Summary ---
:1940 Author Organization [facility] Address [address] [facility] [address] [place] [address] Care Team Providers Name Role Phone Nathan Ferrera MD Primary Care Provider Reason for Visit Reason Comments Cataract Encounter Details Date Type Department Care Team Description 10/26/2021 Office Visit Ophthalmology at [facility] Charles Ac Cataract, unspecified [facility] MD Oscar cataract type, [place] [address] duffy [phone] OPHTHALMOLOGY DEPT. [place], [place] [address] Social History Tobacco Use Types Packs/Day Years Used Date Former Smoker Quit: 1994 Smokeless Tobacco: Never Used Alcohol Use Standard Drinks/Week Comments Yes 0 (1 standard drink = 0.6 oz pure alcoho l) Sex Assigned at Date Recorded Not on file documented as of this encounter Patient Instructions Patient InstructionsCharles Alcala MD - 10/26/2021 3:55 PM EDT Medications: Use eye medications as instructed by Dr. Alcala during your appointment. For non eye medications not prescribed by the Ophthalmology (Eye) Clinic, please follow up with yourPCP (primary care provider) for instructions. Dilation: Your eyes may have been dilated during your visit. Patients response to dilation varies and the duration of dilation can range from 4 to 24 hours. Be careful with visually demanding tasks until these effects have worn off. Driving: Wait until your vision has returned to normal baseline after your eye visit before driving. Changes in vision or eyes: Please call the eye clinic, , for any significant changes in vision, new flashes or floaters or eye pain Eye safety is important: please use eye protection during any activities in which you could injury your eyes. documented in this encounter Progress Notes Charles Alcala MD - 10/26/2021 2:00 PM EDT Encounter Diagnosis Name Primary? Cataract, unspecified cataract type, unspecified laterality Edward Phillip is a 80 y.o. with the following ophthalmic problems: Cataract OD Edward Phillip has visually significant cataract interfering with reading. However, given good 20/20vision under normal lighting conditions, he elects to defer cataract surgery for now. Updated glasses prescription for patient to try with single vision reader We will reassess in a year prn - POMs done, literature given - Special surgical issues: None - Dilation: good CRVO OS: being treated with injections regularly by Dr. Francisco Hx of RD as a child OS self sealed with early Cataract now s/p CE/IOL Plan: - as above - Follow up in Dr Francisco as planned and [address] Alcala or prn Upon Return CEE documented in this encounter Plan of Treatment Upcoming Encounters Date Type Specialty Care Team Description 01/21/2022 Office Visit Ophthalmology Cody Francisco MD [facility] OPHTHALMOLOGY [place] [address] (Wo rk) documented as of this encounter Procedures Procedure Name Priority Date/Time Associated Comments Diagnosis [id number] CALC Routine 10/26/2021 3:40 Cataract, Re sults for this BY LASER INTERFEROMETRY PM EDT unspecified proc edure are in - OU - BOTH EYES cataract type, the resul ts unspecified section. laterality documented in this encounter Results [id number] Calc By Laser Interferometry - OU - [...] OS for CRVO - NNB; prepped by [facility]); left intravitreal injection, 11/10/2020 (Eylea OS for CRVO - NNB); left intravitreal injec tion, 09/21/2021 (Eylea OS for CRVO - NNB); left cataract removal/iol i mplant, 1999 (Mendy Islas. ); and left yag capsulotomy , 1999 (Mendy Islas. ). Eye Meds ??Ibuprofen, albuteroL, glucos am/chond-msm 2/C/D3/ld, ibuprofen, multivitamin, omeprazole, pen icillin v potassium, [...] Charles Alcala MD OPHTHALMOLOGY SERVICES ORDER CRIS documented in this encounter Visit Diagnoses Diagnosis Cataract, unspecified cataract type, uns pecified laterality documented in this encounter Care Teams Reinforcing Steel Erector Relationship Specialty Start Date End Date Nathan Ferrera MD PCP - General Family Medicine 04/22/[address] [place] [address] documented as of this encounter
--- OUTSIDE RECORDS SUMMARY | 2021-11-26 01:44 | XMS_ITS | Encounter Summary ---
:1940 [address] [facility] [place] [address] Care Team Providers Name Role Phone Nathan Ferrera MD Primary Care Provider [phone] Reason for Visit Reason Onset Date Comments Follow-up 11/17/2020 Encounter Details Date Type Department Care Team Description 11/17/2020 Telephone Ophthalmology at [facility] Cody Treadwell MD Follow-up [facility] [place] [address] OPHTHALMOLOGY DEPT [phone] [place], [place] [address] (Wo rk) Social History Tobacco Use Types Packs/Day Years Used Date Former Smoker Quit: 1994 Smokeless Tobacco: Never Used Alcohol Use Standard Drinks/Week Comments Yes 0 (1 standard drink = 0.6 oz pure alcoho l) Sex Assigned at Date Recorded Not on file documented as of this encounter Miscellaneous Notes Telephone Encounter - Marti Serra - 11/28/2020 2:43 PM EDT Pt scheduled Telephone Encounter - Stefani Srivastava - 11/22/2020 11:17 AM EDT Left second message to call and schedule, see below and I will send a letter Telephone Encounter - Stefani Srivastava - 11/17/2020 11:16 AM EDT Called and left message to call and schedule next series with Dr Francisco as well as a cat eval: Try to push the mso's to more like 9 or 10 weeks due to availability 8-10 weeks Eylea OS #2/3 MSO only 8-10 weeks Eylea OS #3/3 MSO only 8-10 weeks for Re-eval FV+MSO with DFE/OCT. DFE in procedure room OK. ?? Also schedule next available cataract consult for right eye at patient's convenience. documented in this encounter Plan of Treatment Upcoming Encounters Date Type Specialty Care Team Description 01/21/2022 Office Visit Ophthalmology Cody Francisco MD [facility] [address] OPHTHALMOLOGY [place], [place] [address] (Wo rk) documented as of this encounter Visit Diagnoses Not on filedocumented in this encounter Care Teams Psychic Reader Relationship Specialty Start Date End Date Nathan Ferrera MD PCP - General Family Medicine 04/22/[address] [place] [address] documented as of this encounter
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
--- OUTSIDE RECORDS SUMMARY | 2021-11-26 01:44 | XMS_ITS | Encounter Summary ---
:1940 Author Organization [facility] [place] [address] Care Team Providers Name Role Phone Nathan Ferrera MD Primary Care Provider [phone] Encounter Details Date Type Department Care Team Description 05/20/2017 Multidisciplinary Care [facility] [place] [facility] [place] [phone] Social History Tobacco Use Types Packs/Day Years Used Date Former Smoker Smokeless Tobacco: Never Used Sex Assigned at Date Recorded Not on file documented as of this encounter Progress Notes Blayne Ortega RN - 05/20/2017 10:45 AM EST Interdisciplinary Liver Tumor Conference Patient: Edward Phillip : 1940 Date Presented: 05/20/17 Patient with no prior history of liver dz with and incidental finding of a liver lesion on chest CT for chronic cough Tumor Characteristics: Tumor Treatment History: ?? N/A -Imaging: Initial: 04/22/2017 MRI abdomen IMPRESSION 1. 15 mm lesion in segment [...] evaluate for growth. 2. Large hiatal hernia. Interval surveillance Type (MRI/CT) impression; AFP Current: Type (MRI/CT) impression; AFP AFP value: Tissue: Patient Characteristics: Current Child's Score: Current MELD Score: Pertinent Labs: see eDH Discussion / Recommendations of the Board: There is a 15 mm lesion in segment 4A which most likely represents a THID / ISELA or hemangioma. Willplan for an abdominal ultrasound. Conference Attendees: Ari Del Valle, Elida, Navin Quinones Russo. Shahid. DAYANA Mishra. FERNANDEZ Jimenez. *These are recommended next steps based on past studies and information available here. Specific treatment to be undertaken must ultimately be determined on an individual patient and those involved in the treatment plan. Blayne Ortega RN Liver Tumor & Organ Territory Sales Professional Division of Gastroenterology and Hepatology [facility] documented in this encounter Plan of Treatment Upcoming Encounters Date Type Specialty Care Team Description 01/21/2022 Office Visit Ophthalmology Cody Francisco MD [facility] [address] OPHTHALMOLOGY [place], [place] [address] (Wo rk) documented as of this encounter Visit Diagnoses Not on filedocumented in this encounter Care Teams Preventative Maintenance Technician Relationship Specialty Start Date End Date Nathan Ferrera MD PCP - General Family Medicine 04/22/[address] [place] [address] documented as of this encounter
--- OUTSIDE RECORDS SUMMARY | 2021-11-26 01:46 | XMS_ITS | Encounter Summary ---
:1940 Author Organization [facility] Address [address] [place] [address] Care Team Providers Name Role Phone Unknown, Provider Primary Care Provider Jason Carter MD Unavailable Encounter Details Date Type Department Care Team Description 03/01/2020 Lab Requisition [facility] Outr Resulting Lab, Pathology & Laboratory Provider [facility] [address] [place] [address] Social History Tobacco Use Types Packs/Day Years Used Date Never Assessed Sex Assigned at Date Recorded Not on file documented as of this encounter Plan of Treatment Not on filedocumented as of this encounter Procedures Procedure Name Priority Date/Time Associated Comments Diagnosis PSA TOTAL, Routine 03/01/2020 10:28 Results for this DIAGNOSTIC EDT procedure are i n the results section. documented in this encounter Results PSA TOTAL, DIAGNOSTIC (03/01/2020 10:28 EDT) Pathologist Sig nature PSA 4.8 0.0 - 6.5 ng/mL [facility] Specimen Blood - Venous blood (substance) Narrative [facility] - 03/01/2020 21:28 EDT NOTE: Serum PSA concentration should not be in terpreted as absolute evidence for the presence or absence of malignant disease. Assayed on Siemens ADVIA Centaur XPT usi ng chemiluminescent technology.??Values obtained by using different assay methods cannot be used interchangeably. Performing Organization Address City/State/ZIP Code Phon e Number [facility] [address] [place] [address] SERVICES documented in this encounter Visit Diagnoses Not on filedocumented in this encounter Care Teams Timing Adjuster Relationship Specialty Start Date End Date Unknown, Provider, PCP - General 12/01/18 Jason Carter MD 12/01/18 documented as of this encounter
--- OUTSIDE RECORDS SUMMARY | 2021-11-26 01:46 | XMS_ITS | Encounter Summary ---
:1940 Author Organization [facility] Address [address] [place] [address] Care Team Providers Name Role Phone Unavailable Primary Care Provider Unavailable Encounter Details Date Type Department Care Team Description 01/06/2014 Results Only [facility] Travis Carter MD Laboratory Services - [address] [place] [address] [address] [place], [place] [id number] [place] [address] [phone] Social History Tobacco Use Types Packs/Day Years Used Date Never Assessed Sex Assigned at Date Recorded Not on file documented as of this encounter Plan of Treatment Not on filedocumented as of this encounter Procedures Procedure Name Priority Date/Time Associated Diagnosis Comme [facility] SURGICAL PATHOLOGY Routine 01/06/2014 9:16 EDT Re sults for this procedure are i n the results section. documented in this encounter Results SURGICAL PATHOLOGY (01/06/2014 9:16 EDT) Pathology SURGICAL PATHOLOGY REPORT MAXINE CASEY Report: Reports generated via electronic interface contain emmanuel ginal data; LAB however they are lacking the format of the original re port. Caution should be taken when reading/interpreting unfo rmatted reports. Name: ? JOSE PHILLIP ? Accession #: ? [id number] ? : ? 1940 (Age: 73) ??M ? Collect Date: ? 01/06/2014 ? Location: ? [facility] ? Receive Date: ? 014 ? Provider: BAKARI CARTER MD Copy to: ? Final Pathologic Diagnosis: SKIN OF FACE, RIGHT SIDE, SHAVE EXCISION: - Seborrheic keratosis, irritated and inflamed. - Seborrheic keratosis present at perip heral edges and base of shave excision specimen. ?? Microscopic Description: Orthohyperkeratosis and foca l parakeratosis thicken the stratum corneum. ??There is formation of horn pseudoc ysts. ??The epidermis is hyperplastic with acanthosis and papillomatosis. ??The ke ratinocytes have a basaloid appearance with squamous eddies in many areas. ??Within the dermis, there is a moderately dense lymphohistiocytic infiltrate. ??The infi ltrate extends into the epidermis with concomitant vacuolar change and keratinocyte necrosis. ??(Dr. Harrington)/n Document reviewed and electronically signed by: GRICELDA HARRINGTON MD Report ??Date: 01/11/2014 15:29 By the signature above, the attending physician certif ies that he/she has personally conducted a gross and/or microscopic examin ation of the described specimens and rendered or confirmed the above diagnosi s. Specimen(s) Received: Shave excision of lesion R face Clinical History: Raised hyperkeratotic lesion R face; probable seborrhe ic keratosis Gross Description: ? Received in formalin labelled with proper patient identification (initials B, J) and R face shave bx is a shave biopsy of an ir regular kellogg granular papule (0.5 x 0.5 x 0.1 cm). ??The margin is inked. ??Bisected and submitted in 1. Alysha Small 01/07/2014 10:30 AM End of Report Specimen Performing Organization Address City/State/ZIP Code Phon e Number [facility] [address] [place] [phone] SERVICES [facility] [address] [place] [address] documented in this encounter Visit Diagnoses Not on filedocumented in this encounter
--- OUTSIDE RECORDS SUMMARY | 2021-11-26 01:46 | XMS_ITS | Encounter Summary ---
:1940 Author Organization [facility] Address [address] [place] [address] Care Team Providers Name Role Phone Unknown, Provider Primary Care Provider Jason Carter MD Unavailable Encounter Details Date Type Department Care Team Description 04/18/2021 Lab Requisition [facility] Outr Resulting Lab, Pathology & Laboratory Provider [facility] [address] [place], [place] [address] Social History Tobacco Use Types Packs/Day Years Used Date Never Assessed Sex Assigned at Date Recorded Not on file documented as of this encounter Plan of Treatment Not on filedocumented as of this encounter Procedures Procedure Name Priority Date/Time Associated Diagnosis Comme nts COVID-19 TEST [facility] Today 04/18/2021 14:45 LAB PCR EST COVID-19 TESTING Routine 04/18/2021 14:45 Results for this EST procedure are i n the results section. documented in this encounter Results COVID-19 TEST [facility] LAB PCR (04/18/2021 14:45 EST) Specimen Swab Performing Organization Address City/State/ZIP Code Phon e Number [facility] [address] [place] [address] SERVICES COVID-19 TESTING (04/18/2021 14:45 EST) COVID-19 rt-PCR Negative Negative [facility] Result Comment: [facility] This test has not been FDA c leared or approved. This test has been authorized by FDA under an EUA for use by authorized laboratories. This test has been authorized only for detection of nucleic acid fro SERVICES m 2018-nCoV, not for any oth er viruses or pathogens. This test is only authorized for the duration of the declaration that circumstances exist justifying the authorization of emergency use of in vitro d iagnostic tests for detectio n and/or diagnosis of 2019-nCoV under section 564(b)(1) of Act, 21 U.S.C ?? 360bbb-3(b) (1), unless the authorization is terminated or revoked sooner. Negative results do not prec lude 2019-nCoV infection and should not be used as the sole basis for treatment or other patient management decisions. Negative results must be combined with clinical observa tions, patient history, and epidemiological informatio n. Testing was performed using the sebas SARS-CoV-2 assay ([employer] on the Sebas 6800 System Performing Lab Sebas [address] [facility] Lab [facility] SERVICES Specimen Swab Performing Organization Address City/State/[facility] Code Phon e Number [facility] [address] [place] [address] SERVICES documented in this encounter Visit Diagnoses Not on filedocumented in this encounter Care Teams Clinical Research Spec Relationship Specialty Start Date End Date Unknown, MD Silver PCP - General 12/01/18 Jason Carter MD 12/01/18 documented as of this encounter
[2021-11-26 12:45] LABS: MCH 29.7 pg (27.0-33.0); MCHC 32.6 % (32.0-36.0); MCV 91 fL (80-95); MPV 11.7 fL (8.0-11.0); Platelet Count 229 10^3/uL (130-400); RBC 5.05 10^6/uL (4.36-5.78); RDW 13.2 % (11.8-14.1); RDW-SD 44.3 fL; WBC 10.76 10^3/uL (4.4-10.8)
[2021-11-26 14:07] LABS: Hemoglobin A1C 5.5 % (<5.7)
[2021-11-26 22:41] LABS: PSA, Screening 5.3 ng/mL (<=6.5)
== END 2021-11-26 01:33 | disposition home or self-care (01) ==
LOC: LOS 01:32
PROVIDERS: PCP Family Medicine; Visit Provider Family Medicine
DX: R53.83 Other fatigue (principal); R73.9 Hyperglycemia, unspecified; N40.0 Benign prostatic hyperplasia without lower urinary tract symptoms; Z12.5 Encounter for screening for malignant neoplasm of prostate
CPT/HCPCS: 36415; 84153; 85027; 83036

== ENCOUNTER → 2021-12-04 01:49 | Outpatient (CLI) | payer MEDICARE, MEDICAID, SELFPAY ==
--- NOTE | 2021-12-04 07:00 | DI.NM_ITS ---
APPROVED REPORT Exam: Exercise Treadmill Patient Location: Out-Patient Room/Bed: Stress Nurse: Payal Win RN Ordering Provider:ARMANDO RUEDA, Contact Number: [phone] BMI: 25.03 Baseline Rhythm: Atrial Fibrillation Indications: Chest pain, AFib, fatigue Medical History Medical History: AFib, hypertension, GERD, hx tobacco use Cardiac Medications: Aspirin, albuterol inhaler Allergies: doxycycline Cardiac Risk Factors: Hypertension, smoker (former) Previous Cardiac Procedures: None Pretest Chest Pain Characteristics: None Exercise History: Physically active Physical Disabilities: None Lung Sounds: Clear to auscultation Heart Sounds: Regular Stress Test Details Test: Exercise stress testing was performed using a Jb protocol. Nuclear Acquisition: Rest Tc-99m/Stress Tc-99m 1 day Rest Isotope: Tc-99m Sestamibi. Dose: 10.0 Date: 12/04/2021 Injection Time: 0925 Stress Isotope: Tc-99m Sestamibi. Dose: 31.5 Date: 12/04/2021 Injection Time: 1136 HR Resting HR Supine: 75 bpm Max Heart Rate (APMHR): 138.913107 bpm Resting HR Standin bpm Target HR (85% APMHR): 117.946835 bpm Max HR Achieved: 162 bpm % of APMHR: 117.39 Recovery HR: 84 bpm HR response to stress: Accelerated HR response to stress due to AFib BP Resting BP Supine: 162/92 mmHg Resting BP Standin/98 mmHg Max BP: 184/104 mmHg Recovery BP: 168/84 mmHg BP response to stress: Normal blood pressure response to stress. ECG Resting ECG: Atrial Fibrillation, RBBB Ectopy: PVCs Stress ECG: Atrial Fibrillation, RBBB ST Change: No significant ST segment changes noted Arrhythmia: PVC Recovery ECG: Atrial Fibrillation, RBBB Recovery ST Change: No significant ST segment changes noted Recovery Arrhythmia: Occasional PVCs, couplet Clinical Reason for Termination: Terminated by RN due to accelerated HR response, exceded 100% of max HR Stress Symptoms: None Exercise duration: 1 min42 sec Highest Stage Reached: Stage 1: 1.7 mph at 10% grade. Exercise capacity: 3.92 METs Angina Score: None Mendoza Treadmill Score: 0 Rate Pressure Product: [id number] Stress ECG Conclusion 1. Resting electrocardiogram showed atrial fibrillation and a right bundle branch block 2. Patient exercised on the Jb protocol and completed a workload of 3.92 METS 3. Accelerated heart rate response to exercise. The patient achieved greater than 100% of predicted heart rate for age 4. There was no electrocardiographic evidence of myocardial ischemia 5. See MPI report Mendoza Treadmill Score is 0 which is Moderate risk. Stress Test Summary STAGE Time (mins) Speed (mph) Grade (%) HR BP SpO2 SYMPTOMS METS Supine 75 162/92 Standing 94 152/98 1 3 1.7 10 152 182/88 4.5 1 min recovery 133 184/84 SpO2 94% 3 min recovery 95 184/104 6 min recovery 84 168/84 MPI Conclusion Myocardial perfusion is normal without evidence of ischemia or prior infarction EF is 57%, wall motion is normal Radiologist Interpretation Radiologist Interpretation by: Gadiel Garzon MD Interpretation Date/Time: 12/04/2021 17:17:58
== END ==
PROVIDERS: PCP Family Medicine; Visit Provider Family Medicine
DX: R07.9 Chest pain, unspecified (principal); I48.91 Unspecified atrial fibrillation; R53.83 Other fatigue
CPT/HCPCS: 78452; 93016; 93018; 93017

== ENCOUNTER 2022-01-10 15:37 | Outpatient (REF) | payer MEDICARE, SELFPAY ==
--- NOTE | 2022-01-10 13:55 | SKI_PTH ---
PATIENT: Edward Phillip JR LOC: [facility] U#:[id number] AGE/SX: 81/M ROOM: RE01/10/[address]: Nathan Ferrera MD : 1940 BED: DIS: 01/10/2022 SPEC #: [id number] RECD: 01/11/22 12:44 STATUS: DAIN REQ #: [id number] ARUN: 01/10/22 13:[address]: Nathan Ferrera DEPT: Surgical Specimen RECD BY: Tara Sousa Tissues: 1 - SKIN BIOPSY(SHAVE/PUNCH) Procedures: SKIN LEVEL 4 Comments: [id number]
== END 2022-01-10 15:38 | disposition home or self-care (01) ==
LOC: LBN 15:37
PROVIDERS: PCP Family Medicine; Visit Provider Family Medicine
DX: C44.319 Basal cell carcinoma of skin of other parts of face (principal)
CPT/HCPCS: 88305

== ENCOUNTER 2022-12-27 11:11 | Outpatient (CLI) | payer MEDICARE, MEDICAID, SELFPAY ==
--- NOTE | 2022-12-27 11:15 | RT.EKG_ITS ---
APPROVED REPORT Exam: Resting ECG Reason for Exam: ELIZABETH bello Patient Location: O HR:88 bpm ECG Measurements Heart Rate [address] [place] [place] [id number] P [id number] QRSd 153 QRS 13 QT 429 T -26 QTc 519 Conclusion Atrial fibrillation...? atrial activity Ventricular premature complex...V complex w/ short R-R interval Right bundle branch block...QRSd>120, terminal axis(90,270)
== END 2022-12-27 11:12 | disposition home or self-care (01) ==
LOC: DI.CARD 11:29
PROVIDERS: PCP Family Medicine; Referring Provider Family Medicine; Visit Provider Internal Medicine Cardiovascular Disease
DX: I48.91 Unspecified atrial fibrillation (principal); R06.00 Dyspnea, unspecified
CPT/HCPCS: 93010

== ENCOUNTER → 2022-12-27 11:11 | Outpatient (BNVA) | payer MEDICARE, MEDICAID, SELFPAY | PROVIDERS: PCP Family Medicine; Referring Provider Family Medicine; Visit Provider Internal Medicine Cardiovascular Disease | DX: I48.91 Unspecified atrial fibrillation (principal) | CPT/HCPCS: 93005; 99203; 99214 ==

== ENCOUNTER → 2023-03-20 00:37 | Outpatient (CLI) | payer MEDICARE, MEDICAID, SELFPAY ==
--- NOTE | 2023-03-20 10:30 | DI.US_ITS ---
APPROVED REPORT EXAM: Comprehensive 2D, Doppler, and color-flow Echocardiogram Patient Location: Out-Patient Pigs Feet Finisher: Mindy Parikh RDCS (AE) Indications: Atrial Fibrillation, mitral regurgitation, A Fib, Post Operative Other Information Study Quality: Adequate Conclusion Normal left ventricular wall thickness and chamber size. Ejection fraction is 55%. There are no seg mental wall motion abnormalities Normal right ventricular size and systolic function Both atria are severely enlarged Trileaflet aortic valve without stenosis or regurgitation Normal mitral valve with moderate eccentric regurgitation Normal tricuspid valve with mild regurgitation. Estimated right ventricular systolic pressure is 40 mmHg Mildly dilated ascending aorta 3.6 cm Wall motion Left Ventricle The left ventricle is normal size. Left ventricular systolic function is normal There is normal left ventricular wall thickness. There is normal LV segmental wall motion. There is no ventricular septal defect visualized. LVEF is 55%. Right Ventricle Right ventricle is normal Right ventricular systolic function is grossly normal. Atria Left atrium is severely dilated. Right atrium is severely dilated. The interatrial septum is intact w ith no evidence for an atrial septal defect. Aortic Valve The aortic valve is normal in structure. Aortic valve is trileaflet. There is no aortic valvular sten osis. Mitral Valve The mitral valve is normal in structure. No evidence of mitral valve stenosis. Moderate mitral regurg itation. Mitral regurgitation jet is posteriorly directed. Tricuspid Valve The tricuspid valve is normal in structure. There is no tricuspid valve stenosis. Mild tricuspid regu rgitation. The RVSP is 40mmHg. Pulmonic Valve The pulmonary valve is normal in structure. There is no pulmonic valvular stenosis. Trace pulmonic re gurgitation. Great Vessels The aortic root is normal in size. The ascending aorta is mildly dilated. Aortic arch is not well vis ualized. The IVC collapses <50% with inspiration. Pericardium There is no pericardial effusion. 2D Dimensions IVSD d PLAX 1.13 cm M: 0.6-1.2 Ao Root d 3.51 cm M: 3.1 - 3.7 LVPW d PLAX 1.09 cm M: 0.6 - 1.2 Ao Asc Diam d 3.60 cm M: 2.6 - 3.4 LVID d PLAX 5.10 cm M: 4.2 - 5.8 LVDs 3.75 cm M: 2.5 - 4.0 LV EF Teichholz 51.4 % FS 26.40 % LV EDV (Teich) 123.8 mL LV ESV (Teich) 60.1 mL M-Mode TAPSE 1.72 cm (M/F) >1.7 Auto EF LV EDV A4C 135.7 mL LV EDV A2C 146.5 mL LV EDV BP 146.3 mL LV ESV A4C 69.1 mL LV ESV A2C 76.4 mL LV ESV BP 73.2 mL LVEF(%) A4C 49.1 % LVEF(%) A2C 47.8 % LVEF(%) BP 50.0 % LV SV A4C 66.6 ml LV SV A2C 70.1 ml LV SV BP 73.1 ml LV CO A4C 4.9 L/min LV CO A2C 6.3 L/min LV CO BP 5.6 L/min HR A4C 73.32 BPM HR A2C 90.45 BPM LV EDV Index (BP) LA Volume LA Length A4C 7.5 cm LA Length A2C 7.6 cm LA Area A4C s 38.58 cm2 LA Area A2C s 40.77 cm2 LA Vol A4C A-L 168.39 mL LA Vol A2C A-L 186.72 mL LA Vol Biplane A-L 178.0 mL LA Vol/BSA A4C A-L LA Vol/BSA A2C A-L LA Vol/BSA BP A-L 84.8 mL/m2 LA Vol A4C MOD 156.5 mL LA Vol A2C MOD 174.9 mL LA Vol BP MOD 165.5 mL RA Volume RA Area A4C 30.0 cm2 RA ESV A4C (A-L) 112.0mL RA Vol/BSA A4C A-L RA Length A4C 6.8 cm RA ESV A4C (MOD) 107.8mL LV Diastology MV E' lateral 0.126 (>0.1 m/s) MV E Vmax 0.98 (0.4-1.3 m/s) MV E/E' LAT 7.75 (<14) Aortic Valve AoV Vmax 1.47 m/s LVOT Vmax 1.01 m/s AoV Peak Grad 8.7 mmHg LVOT Peak Grad 4.1 mmHg AoV Area (Vmax) 2.44 cm2 LVOT VTI 0.198 m AoV VTI 0.312 m LVOT Mean Grad 2.1 mmHg AoV Mean Ian. 1.03 m/s LVOT SV 70.77 mL AoV Mean Grad 4.8 mmHg LVOT Diam s 2.10 cm AoV Area (VTI) 2.27 cm2 Velocity Ratio 0.69 Mitral Valve MV DT 198 (160-240 msec) MV Vmax TIPS 1.15 m/s MV Mean Grad 1.1 (<2mmHg) MV VTI 0.310 m Pulmonary Valve PV Vmax 0.92 (0.5-1.5 m/s) RVOT Vmax 0.73 m/s PV Peak Grad 3.4 mmHg RVOT Peak Gr. 2.1 mmHg PV Mean Ian 0.60 m/s RVOT VTI 0.154 m PV Mean Grad 1.7 mmHg RVOT Mean Gr. 1.3 mmHg Tricuspid Valve RA Pressure 8.00 mmHg TR Vmax 2.83 m/s TV S' 0.15 m/s TR Peak Grad 31.9 mmHg RVSP (TR) 40.0 mmHg
== END ==
PROVIDERS: PCP Family Medicine; Visit Provider Internal Medicine Cardiovascular Disease
DX: I48.91 Unspecified atrial fibrillation (principal)
CPT/HCPCS: 93306

== ENCOUNTER → 2023-03-31 10:33 | Outpatient (BNVA) | payer MEDICARE, MEDICAID, SELFPAY | PROVIDERS: PCP Family Medicine; Referring Provider Family Medicine; Visit Provider Internal Medicine Cardiovascular Disease | DX: I48.21 Permanent atrial fibrillation (principal); I10 Essential (primary) hypertension | CPT/HCPCS: 99214 ==

== ENCOUNTER 2023-10-31 01:17 | Outpatient (CLI) | payer MEDICARE, SELFPAY ==
[2023-10-31 13:37] LABS: Calculated LDL 65 mg/dL (<100); Cholesterol 138 mg/dL (<200); HDL Cholesterol 64 mg/dL (40-60); Magnesium 1.7 mg/dL (1.8-2.4); Triglyceride 47 mg/dL (<150); Vitamin B12 330 pg/mL (193-986)
[2023-10-31 14:00] LABS: Hemoglobin A1C 5.5 % (<5.7)
== END 2023-10-31 01:18 | disposition home or self-care (01) ==
LOC: LOS 01:18
PROVIDERS: PCP Family Medicine; Visit Provider Family Medicine
DX: E11.51 Type 2 diabetes mellitus with diabetic peripheral angiopathy without gangrene (principal); E78.5 Hyperlipidemia, unspecified; E83.42 Hypomagnesemia
CPT/HCPCS: 36415; 80061; 80186; 83090; 82607; 83036; 83735

== ENCOUNTER → 2024-03-22 09:32 | Outpatient (BNVA) | payer MEDICARE, MEDICAID, SELFPAY | PROVIDERS: PCP Family Medicine; Visit Provider Internal Medicine Cardiovascular Disease | DX: I48.21 Permanent atrial fibrillation (principal); I10 Essential (primary) hypertension | CPT/HCPCS: 99213 ==

== ENCOUNTER 2024-04-21 01:14 | Outpatient (CLI) | payer MEDICARE, MEDICAID, SELFPAY ==
--- NOTE | 2024-04-21 07:30 | DI.MRI_ITS ---
Exam(s) MR BRAIN WO/W EXAM: MR BRAIN WO/W CLINICAL HISTORY: TIA,mass of brain,g93.89 TECHNIQUE: Multiplanar multisequence MRI of the brain was performed. Both noninfused and contrast i nfused sequences were performed. IV Contrast injected was 17 cc Dotarem. COMPARISON: No prior brain imaging exams available for comparison FINDINGS: CEREBRAL PARENCHYMA: No evidence of intracranial hemorrhage, mass effect nor shift of midline structu re. No extraaxial fluid collections. Ventricles are not enlarged nor shifted. There is no significant focal signal abnormality in the cerebellar hemispheres nor within the gerson, m idbrain, and thalami. There are multiple small foci of FLAIR bright signal abnormality in the periventricular white matter not associated with hemorrhage, enhancement, surrounding edema nor restricted diffusion and consisten t with sequelae of chronic ischemic disease. DWI: No areas of restricted diffusion to suggest acute ischemic event. SWI: No microhemorrhages evident. There are no ring enhancing lesions in the brain. There is no abnormal meningeal enhancement. PITUITARY GLAND: No mass nor parasellar abnormality. No obvious abnormality in the cavernous sinuses. FLOW VOIDS: The expected flow void are noted. No evidence of obvious aneurysm nor obvious vascular ma lformation. PARANASAL SINUSES: The visualized paranasal sinuses appear unremarkable. Small amount of fluid noted in the mastoid air cells bilaterally. ORBITS: Evidence of left cataract surgery. IMPRESSION: 1. There is periventricular signal abnormality consistent with chronic small vessel disease. No evid ence of acute ischemic event. 2. No abnormal enhancing intracranial findings. There are no ring enhancing lesions in the brain and there is no abnormal meningeal enhancement. DATA REPOSITORY:
[2024-04-21] MEDS: Gadoterate meglumine 20 ML VIAL IVP (13:56)
[2024-04-21] MEDS: Normal Saline Flush 10 ML SYR IJ (13:57)
== END 2024-04-21 01:34 ==
LOC: DI 01:18
PROVIDERS: PCP Family Medicine; Visit Provider Family Medicine
DX: G93.89 Other specified disorders of brain (principal)
CPT/HCPCS: 70553

== ENCOUNTER 2024-05-14 01:30 | Outpatient (CLI) | payer MEDICARE, MEDICAID, SELFPAY ==
[2024-05-14 12:27] LABS: Magnesium 1.8 mg/dL (1.8-2.4)
== END 2024-05-14 01:31 | disposition home or self-care (01) ==
LOC: LOS 01:31
PROVIDERS: PCP Family Medicine; Visit Provider Family Medicine
DX: Z12.5 Encounter for screening for malignant neoplasm of prostate (principal); E83.42 Hypomagnesemia
CPT/HCPCS: 36415; 84153; 83735

== ENCOUNTER 2024-09-27 02:35 | Outpatient (CLI) | payer MEDICARE, MEDICAID, SELFPAY ==
--- NOTE | 2024-09-27 07:45 | DI.RAD_ITS ---
Exam(s) XR TIB/FIB LT EXAM: XR TIB/FIB LT CLINICAL HISTORY: left leg pain,M79.605. TECHNIQUE: 2D digital imaging was performed of the left tibia and fibula. Two images were obtained. AP and lateral views were obtained. COMPARISON: No exams were available for comparison FINDINGS: BONES: No acute fracture is present. No bony destructive lesion is seen. Visualized portion of knee a nd ankle joints are unremarkable. SOFT TISSUE: Normal. IMPRESSION: Unremarkable radiographs of the left tibia and fibula. DATA REPOSITORY: RADIATION DOSE DELIVERED:
--- NOTE | 2024-09-27 07:45 | DI.RAD_ITS ---
Exam(s) XR FEMUR LT EXAM: XR FEMUR LT CLINICAL HISTORY: left leg pain, s/p jamming injury 3 months agoM79.605. TECHNIQUE: 2D digital imaging was performed of the left femur. Four images were obtained. AP and lat eral views were obtained. COMPARISON: CR XR TIB/FIB LT from 09/27/2024 FINDINGS: BONES: No acute fracture is present. No bony destructive lesion is seen. There are mild degenerative changes seen in the left knee particularly in the medial femoral tibial joint. SOFT TISSUE: Atherosclerotic calcification is present. IMPRESSION: No acute bone or joint abnormality is identified. DATA REPOSITORY: RADIATION DOSE DELIVERED:
--- NOTE | 2024-09-27 07:45 | DI.RAD_ITS ---
Exam(s) XR LUMBAR SPINE COMPLETE EXAM: XR LUMBAR SPINE COMPLETE CLINICAL HISTORY: left leg pain,BACK PAIN,M54.9. TECHNIQUE: 2D digital imaging was performed of the lumbar spine. Five images were obtained. AP, la teral, right oblique, left oblique and L5-S1 spot views were obtained. COMPARISON: MR MRI - LUMBAR SPINE WO CONTRAST from 04/07/2017 FINDINGS: BONES: No fracture or destructive lesion. Vertebral bodies are unremarkable. Degenerative changes of the facets are seen from L3-4 through L5-S1. DISKS: Disc space narrowing is seen at multiple levels of the lumbar spine. ALIGNMENT: There is a left convex lumbar scoliosis. There is mild anterolisthesis of L5 on S1 and mi ld retrolisthesis of L2 on L3. SOFT TISSUE: Atherosclerotic calcification is present. IMPRESSION: Marked degenerative changes are seen in the lumbar spine. Left convex lumbar scoliosis. DATA REPOSITORY: RADIATION DOSE DELIVERED:
== END 2024-09-27 02:55 ==
LOC: DI 02:35
PROVIDERS: PCP Family Medicine; Visit Provider Family Medicine
DX: M79.605 Pain in left leg (principal); M54.9 Dorsalgia, unspecified
CPT/HCPCS: 73552; 72110; 73590

== ENCOUNTER 2024-09-27 04:17 | Outpatient (CLI) | payer MEDICARE, MEDICAID, SELFPAY ==
[2024-09-27 15:15] LABS: Hemoglobin A1C 5.2 % (<5.7)
[2024-09-27 16:19] LABS: CREATININE 0.8 mg/dL (0.70-1.30); Calculated LDL 61 mg/dL (<100); Cholesterol 139 mg/dL (<200); Estimated GFR 86.73 (mL/min/1.73m2); HDL Cholesterol 67 mg/dL (>or=40); Potassium 4.5 mmol/L (3.5-5.1); Triglyceride 59 mg/dL (<150)
== END 2024-09-27 04:18 | disposition home or self-care (01) ==
PROVIDERS: PCP Family Medicine; Visit Provider Family Medicine
DX: I10 Essential (primary) hypertension (principal); R73.9 Hyperglycemia, unspecified; E78.5 Hyperlipidemia, unspecified
CPT/HCPCS: 36415; 73552; 80061; 72110; 73590; 82565; 83036; 84132

== ENCOUNTER 2025-03-08 08:32 | Outpatient (CLI) | payer MEDICARE, MEDICAID, SELFPAY ==
[2025-03-08 14:50] LABS: Magnesium 1.8 mg/dL (1.8-2.4); Vitamin B12 420 pg/mL (193-986)
== END 2025-03-08 08:33 | disposition home or self-care (01) ==
LOC: LOS 08:32
PROVIDERS: PCP Family Medicine; Visit Provider Family Medicine
DX: D64.9 Anemia, unspecified (principal); E83.42 Hypomagnesemia
CPT/HCPCS: 36415; 82607; 83735

== ENCOUNTER 2025-03-21 08:39 | Outpatient (CLI) | payer MEDICARE, MEDICAID, SELFPAY ==
--- NOTE | 2025-03-21 08:30 | RT.EKG_ITS ---
APPROVED REPORT Exam: Resting ECG Reason for Exam: afib Patient Location: O HR:84 bpm ECG Measurements Heart Rate 84 [place] [place] [id number] P [id number] QRSd 155 QRS -1 QT 390 T -18 QTc 462 Conclusion Atrial fibrillation...? atrial activity Right bundle branch block...QRSd>120, terminal axis(90,270) LVH by voltage...R >2.60mV in V5 or V6
== END 2025-03-21 08:40 | disposition home or self-care (01) ==
LOC: DI.CARD 08:39
PROVIDERS: PCP Family Medicine; Visit Provider Registered Nurse
DX: I48.21 Permanent atrial fibrillation (principal); I45.10 Unspecified right bundle-branch block
CPT/HCPCS: 93010

== ENCOUNTER → 2025-03-21 08:58 | Outpatient (BNVA) | payer MEDICARE, MEDICAID, SELFPAY | PROVIDERS: PCP Family Medicine; Visit Provider Registered Nurse | DX: I48.21 Permanent atrial fibrillation (principal); I10 Essential (primary) hypertension; Z79.811 Long term (current) use of aromatase inhibitors | CPT/HCPCS: 99215; 93005 ==